=== PATIENT | female | born 1965 | race Caucasian/White ===

== ENCOUNTER → 2016-12-14 | Outpatient (CLI) | payer MEDICARE, OTHER ==
[~2016-12-14] MED LIST: ALLEGRA ALLERG180 MG PO; ALLEGRA180 MG PO; ALTOPREV40 MG PO; AMITRIP PO; AMITRIPTYLINE H25 MG PO; COMBIVENT U/D3 M1 NEB; EXCEDRIN MIGRA1 EACH PO; FERROUS GLUCON324 MG PO; GABAPENTIN300 MG PO; IBUPROFEN800 MG PO; LEVOTHYROXINE112 MCG PO; LEVOTHYROXINE75 MCG PO; LEVOXYL; LINZESS145 MCG PO; LORTAB 10/500 T1 TAB; LOVASTATIN20 M2 PO; MOBIC15 MG PO; MOTRIN IB200 M1 PO; MULTI-VITAMIN1 EAC1 PO; NAPROXEN; NEXIUM PO; NIACIN ER500 MG PO; NIASPAN1000 M1 PO; OXYGEN; PERPHEN PO; REGLAN; REGLAN10 MG; ROBAXIN 750750 M1 PO; SINGULAIR; SINGULAIR PO; SYMBICORT 160/4.6 G1; SYMBICORT80 INH; SYNTHROID75 MCG PO; TRICOR145 MG PO; VITAL-D RX TABL1 TAB; VITAMIN D2 PO; ZITHROMAX500 MG PO
--- NOTE | ~2016-12-14 | EKG ---
PATIENT: BRITTA SCHMITT UNIT #: [id number] Ventricular Rate: 77 BPM Atrial Rate: 77 BPM P-R Interval: 134 ms QRS Duration: 70 ms Q-T Interval: 384 ms QTC Calculation(Bezet): 434 ms P [place]: 12 degrees Calculated R [place]: 19 degrees Calculated T [place]: 17 degrees Diagnosis Line: Sinus rhythm with marked sinus arrhythmia with Diagnosis Line: junctional escape complexes Diagnosis Line: Otherwise normal ECG Diagnosis Line: When compared with ECG of 05-JUN-2014 09:08, Diagnosis Line: Sinus rhythm is now with junctional escape Diagnosis Line: complexes Diagnosis Line: Confirmed by CALEB ORTEGA MD ([id number]) on 12/14/2016 Diagnosis Line: 11:35:30 PM INTERPRETING MD: JORDAN CHAPARRO
[2016-12-14 12:48] LABS: BUN/CREATININE RATIO 16.66; CALCIUM SERUM 9.1 mg/dL (8.4-10.2); CREATININE SERUM 0.9 mg/dL (0.6-1.4); POTASSIUM 4.4 mmol/L (3.5-5.1)
== END | disposition home or self-care (01) ==
LOC: CAMB 10:00
PROVIDERS: Surgery
DX: Z01.818 Encounter for other preprocedural examination (principal)
CPT/HCPCS: 36415; 80048; 93005

== ENCOUNTER 2016-12-24 07:34 | Inpatient (IN) | payer MEDICARE, OTHER ==
--- NOTE | ~2016-12-24 | CR72 ---
[facility] A Service of [facility] RADIOLOGY TEXT RESULTS PATIENT: BRITTA SCHMITT LOCATION: [address] : [birth year] UNIT #: [id number] AGE: [address]: Savanah Sandy MD SEX: F ORDER DR: [id number] [facility] [address] [facility] [place], [place] [address] [id number] MR#: [id number] Acc #: [id number] NAME: BRITTA SCHMITT : 1965 SEX: F STUDY DATE/TIME: 12/24/2016 10:55 UNIT: [facility] ROOM: [facility] STUDY DESCRIPTION: CR Chest Single View Portable Attending Physician: Savanah Sandy M.D. Ordering Physician: Chapin Pool M.D. Primary Care Physician: Jovita Velasquez M.D. MEDICAL IMAGING REPORT This report is preliminary unless electronic signature is present EXAM AP portable chest, 12/24/2016 (1056 hours). HISTORY Respiratory failure. Endotracheal tube placement. TECHNIQUE AP portable chest x-ray. FINDINGS Newly placed endotracheal tube is in good position with tip in the lower thoracic trachea about 2 cm above the jolene. Newly placed NG tube is in good position with tip in the distal portion of a decompressed stomach. Right IJ central line remains in good position. Mild diffuse interstitial pulmonary edema or infiltrate throughout both lungs and small right pleural effusion, unchanged since earlier today. IMPRESSION 1. ETT and NG tube in good position. 2. No other change since earlier today. Dictated by... Kurt Kamara M.D. THIS IS AN ELECTRONICALLY VERIFIED REPORT Kurt Kamara M.D. at 12/24/2016 10:42 PM SEBASTIAN/luzmaria TD: 12/24/2016 17:39 JOB #: [id number] [facility] A Service of [facility] RADIOLOGY TEXT RESULTS PATIENT: BRITTA SCHMITT LOCATION: [place] [address]-17 : 61 UNIT #: [id number] AGE: [address]: Savanah Sandy MD SEX: F ORDER DR: MEDICAL IMAGING REPORT Page 1 of 1 COPY
--- NOTE | ~2016-12-24 | CT71 ---
[facility] A Service [facility] RADIOLOGY TEXT RESULTS PATIENT: BRITTA SCHMITT LOCATION: [facility] 5711-10 : 61 UNIT #: [id number] AGE: [address]: Savanna Foss MD SEX: F ORDER DR: [id number] [facility] [address] [facility]. [place], [place] [address] [id number] MR#: [id number] Acc #: [id number] NAME: BRITTA SCHMITT : 1965 SEX: F STUDY DATE/TIME: 01/02/2017 16:32 UNIT: [facility] ROOM: [facility] STUDY DESCRIPTION: CT Head Wo Contrast Attending Physician: Savanna Foss M.D. Ordering Physician: Edie Carroll M.D. Primary Care Physician: Jovita Velasquez M.D. MEDICAL IMAGING REPORT This report is preliminary unless electronic signature is present EXAM CT brain without contrast HISTORY Increased confusion since yesterday. FINDINGS This CT exam was performed with one or more of the following radiation dose reduction techniques: Automatic exposure control, adjustment of mA and/or kV according to patient size, and iterative reconstruction. CT brain without contrast demonstrates no intracranial hemorrhage, mass or edema. No midline shift or ventricular dilatation or extraaxial fluid collection. Opacification of mastoid air cells bilaterally and mucosal thickening in the left sphenoid sinus. Incidental non-pneumatized frontal sinuses. IMPRESSION 1. Negative CT brain. 2. Opacified mastoid air cells bilaterally and mucosal thickening in the sphenoid sinus. Dictated by... Luigi Caceres M.D. THIS IS AN ELECTRONICALLY VERIFIED REPORT Luigi Caceres M.D. at 01/02/2017 10:50 PM DFL/psc TD: 01/02/2017 20:17 JOB #: [id number] [facility] A Service [facility] RADIOLOGY TEXT RESULTS PATIENT: BRITTA SCHMITT LOCATION: [facility] : 61 UNIT #: [id number] AGE: [address]: Savanna Foss MD SEX: F ORDER DR: MEDICAL IMAGING REPORT Page 1 of 1 COPY
--- NOTE | ~2016-12-24 | CT55 ---
[facility] A Service of [facility] RADIOLOGY TEXT RESULTS PATIENT: BRITTA SCHMITT LOCATION: [facility] 573-01 : 61 UNIT #: [id number] AGE: [address]: Savanna Foss MD SEX: F ORDER DR: [id number] [facility] [address] [place], [place] [address] [id number] I MR#: [id number] Acc #: [id number] NAME: BRITTA SCHMITT : 1965 SEX: F STUDY DATE/TIME: 01/02/2017 16:36 UNIT: [facility] ROOM: [facility] STUDY DESCRIPTION: CT Chest W Con Attending Physician: Savanna Foss M.D. Ordering Physician: Roberto Rothman M.D. Primary Care Physician: Jovita Velasquez M.D. MEDICAL IMAGING REPORT This report is preliminary unless electronic signature is present EXAM CT chest with IV contrast HISTORY Respiratory failure since yesterday. FINDINGS This CT exam was performed with one or more of the following radiation dose reduction techniques: Automatic exposure control, adjustment of mA and/or kV according to patient size, and iterative reconstruction. CT chest with IV contrast demonstrates very small bilateral pleural effusions. Moderate atelectasis in the posterior right lower lobe and mild atelectasis in the posterior left lower lobe. Additional patchy subsegmental airspace infiltrates in the bilateral upper lobes and in both lower lobes. Enlarged aortopulmonic window lymph node measuring 1.2 cm in short-axis dimension could be reactive or inflammatory. Moderate sized hiatal hernia with fluid in the thoracic esophagus suggesting gastroesophageal reflux. There is a small pericardial effusion and small amount of perihepatic ascites. IMPRESSION 1. Moderate atelectasis in the posterior and inferior right lower lobe and mild atelectasis in the posterior left lower lobe. 2. Mild patchy multifocal airspace infiltrates in the bilateral upper lobes and in the lower lobes are nonspecific and could be due to pneumonia. 3. Small pleural effusions. 4. Adenopathy in the aortopulmonic window measuring 1.2 cm could be reactive or inflammatory. 5. Moderate sized hiatal hernia with fluid in the thoracic esophagus suggesting gastroesophageal reflux. 6. Small pericardial effusion and small amount of perihepatic ascites. [facility] A Service of [facility] RADIOLOGY TEXT RESULTS PATIENT: BRITTA SCHMITT LOCATION: [facility] 573-01 : 61 UNIT #: [id number] AGE: [address]: Savanna Foss MD SEX: F ORDER DR: Dictated by... Luigi Caceres M.D. THIS IS AN ELECTRONICALLY VERIFIED REPORT Luigi Caceres M.D. at 01/02/2017 10:50 PM DFL/psc TD: 01/02/2017 20:23 JOB #: [id number] MEDICAL IMAGING REPORT Page 1 of 1 COPY
--- NOTE | ~2016-12-24 | CO ---
Unit #: [id number] #: [id number] Patient: CELENA SCHMITT [id number] [address] [place], [place] [address] [id number] I MR#: [id number] NAME: CELENA SCHMITT ROOM: 573 Age: 51 Sex: F Admission Date: 12/24/2016 : 1965 Attending Physician: Savanna Foss M.D. Primary Care Physician: Jovita Velasquez M.D. Consultation Date: 01/01/2017 CONSULTATION REPORT REASON FOR CONSULTATION Depression and confusion. HISTORY OF PRESENT ILLNESS Ms. Celena Schmitt is a 51-year-old white female diagnosed with Down syndrome, seen in room 573, bed 1 on 01/01/2017. The patient was very agitated, and received Haldol 5 mg IV and after that, the patient was very sleepy and sedated, unable to give any reliable information. Before that, the patient was giving one-word answer, come on very confused, upset. The patient lost her mother in this hospital few days ago, was given this news recently. The patient started having increasing behavior after that. The patient was admitted on 12/24/2016 with shortness of air. The patient's family was at the bedside. Obtained information from nursing staff. Family chart reviewed. PAST PSYCHIATRIC HISTORY Remarkable for history of Down syndrome, mild MR. MEDICAL HISTORY AND MEDICATION HISTORY History of chronic lung disease, on oxygen 2 L at home; hypertension; hypothyroidism; history of Down syndrome. MEDICATIONS The patient is on Synthroid, amitriptyline, TriCor. Please refer to MAR for detail. FAMILY HISTORY AND SOCIAL HISTORY The patient has a good support from family. No history of any abuse. No history of any substance abuse. REVIEW OF SYSTEMS Complete review of systems is unremarkable except for agitation and confusion. MENTAL STATUS EXAMINATION Vital signs; blood pressure 98/46, respiration 22, pulse 104, temperature is afebrile. General appearance; the patient dressed casually in hospital attire, lying comfortably in bed after she received injection of Haldol; before that, agitation and confusion. Attention span and concentration, unable to assess. Speech, unable to assess. Orientation, unable to assess. Mood and affect, labile. Thought process and thought content, disorganized. Recent and remote memory, unable to assess. Fund of knowledge, impaired. Insight and judgment, impaired. Unit #: [id number] #: [id number] Patient: CELENA SCHMITT DIAGNOSES Psychiatric: Delirium, F05; rule out major depressive disorder, recurrent, severe, F33.2. Secondary diagnosis: Deferred. Medical diagnosis: Please refer to H and P. Stressors: Psychosocial stressor, recent of her mother. ASSESSMENT AND PLAN 1. Supportive psychotherapy and psychoeducation provided to the patient's family. The patient unable to comprehend at this time. 2. Recommending at this time to continue with current treatment and advised haloperidol 5 mg q.6 hours p.r.n. for agitation p.o. or IM route. The patient was advised Risperdal 1 mg b.i.d. for mood stabilization and psychosis. We will continue to follow. If needed, consider further adjustment of medication. Advised to hold above medication if the patient too sleepy. Please feel free to call if any questions, telephone [phone]. Dictated by... Brady Monsivais/velasquez TD: 01/03/2017 00:56 JOB #: [id number] CONSULTATION REPORT Page 1 of 1 X Rubio Flores MD X CONSULTATION REPORT
--- NOTE | ~2016-12-24 | CR71 ---
[facility] A Service of [facility] RADIOLOGY TEXT RESULTS PATIENT: BRITTA SCHMITT LOCATION: [address] : 63 UNIT #: [id number] AGE: [address]: Savanna Foss MD SEX: F ORDER DR: [id number] [facility] [address] [facility]. [place], [place] [address] [id number] I MR#: [id number] Acc #: [id number] NAME: BRITTA SCHMITT : 1965 SEX: F STUDY DATE/TIME: 12/27/2016 6:02 UNIT: [facility] ROOM: [facility] STUDY DESCRIPTION: CR Chest Single View Attending Physician: Savanna Foss M.D. Ordering Physician: Roberto Rothman M.D. Primary Care Physician: Jovita Velasquez M.D. MEDICAL IMAGING REPORT This report is preliminary unless electronic signature is present EXAM AP portable chest, 12/27/2016. HISTORY Respiratory failure. Follow up cardiopulmonary status. Patient on ventilator. TECHNIQUE AP portable chest x-ray. FINDINGS The exam shows no change since yesterday. Endotracheal tube tip 1.5 cm above the jolene. Right IJ central line and NG tube remain in good position. Ytbp-kt-yfeyhxko diffuse interstitial pulmonary edema or infiltrate throughout both lungs with small pleural effusions and bibasilar pulmonary atelectasis. IMPRESSION Stable portable chest radiograph, unchanged since yesterday. Dictated by... Kurt Kamara M.D. THIS IS AN ELECTRONICALLY VERIFIED REPORT Kurt Kamara M.D. at 12/27/2016 3:54 PM RGW/bob TD: 12/27/2016 09:46 JOB #: [id number] MEDICAL IMAGING REPORT [facility] A Service of [facility] RADIOLOGY TEXT RESULTS PATIENT: BRITTA SCHMITT LOCATION: [address] : [birth year] UNIT #: [id number] AGE: [address]: Savanna Foss MD SEX: F ORDER DR: Page 1 of 1 COPY
--- NOTE | ~2016-12-24 | CO ---
Unit #: [id number] #: [id number] Patient: CELENA SCHMITT [id number] [address] [place], [place] [address] [id number] I MR#: [id number] NAME: CELENA SCHMITT ROOM: 573 Age: 51 Sex: F Admission Date: 12/24/2016 : 1965 Attending Physician: Savanna Foss M.D. Primary Care Physician: Jovita Velasquez M.D. Consultation Date: 01/04/2017 CONSULTATION REPORT DISCUSSION Ms. Celena Schmitt is a 51-year-old female, seen in room 573, bed 1 on 01/04/2017. The patient was lying comfortably in a recliner, able to answer questions coherently, tolerating medication fairly well, alert and oriented. The patient did not show any aggression or agitation. The patient compliant with medication. Vital signs; temperature 99.2, pulse 95, respirations 20, blood pressure 107/67, oxygen saturation 92%. REVIEW OF SYSTEMS Complete review of systems is unremarkable. MENTAL STATUS EXAMINATION General appearance, the patient dressed casually. Attention span and concentration, fair. Speech, slow. Oriented in place and person. Mood and affect, sad and dysphoric. Thought process, coherent. Thought content, the patient denied any thoughts of harming self or others, but somewhat guarded. Recent and remote memory, fair. Language, fair. Fund of knowledge, fair to slightly impaired. Insight and judgment, fair to slightly impaired. DIAGNOSES 1. Delirium, resolved. 2. Major depressive disorder, recurrent, severe. ASSESSMENT/PLAN 1. Supportive psychotherapy and psychoeducation provided to the patient. 2. Educated about benefits and side effects of medication and course and prognosis of illness. 3. Advised to continue with current medication. The patient's haloperidol was changed to p.r.n. only. The patient will be benefitted with SSRI. Plan to consider low dose such as Celexa 10 mg daily. If needed, consider further adjustment of medication. We will continue to follow. Please feel free to call if any questions telephone #[phone]. Dictated by... Rubio Flores M.D. FABIO/velasquez TD: 01/05/2017 01:41 JOB #: [id number] Unit #: [id number] #: [id number] Patient: CELENA SCHMITT CONSULTATION REPORT Page 1 of 1 X Rubio Flores MD CONSULTATION REPORT
--- NOTE | ~2016-12-24 | CR2 ---
[facility] A Service of [facility] RADIOLOGY TEXT RESULTS PATIENT: BRITTA SCHMITT LOCATION: [address] : [birth year] UNIT #: [id number] AGE: [address]: Savanah Sandy MD SEX: F ORDER DR: [id number] [facility] [address] [place], [place] [address] [id number] I MR#: [id number] Acc #: [id number] NAME: BRITTA SCHMITT : 1965 SEX: F STUDY DATE/TIME: 12/24/2016 15:49 UNIT: [facility] ROOM: [facility] STUDY DESCRIPTION: CR Abdomen Acute Series Attending Physician: Savanah Sandy M.D. Ordering Physician: Nato Moreno Jr., M.D. Primary Care Physician: Jovita Velasquez M.D. MEDICAL IMAGING REPORT This report is preliminary unless electronic signature is present EXAM Acute abdomen series 12/24/2016 HISTORY Postop hernia repair surgery yesterday. Respiratory failure. Abdomen distension and tenderness. TECHNIQUE Flat and upright abdomen series with AP portable chest x-ray. FINDINGS Abdomen images show a normal bowel gas pattern with no evidence of bowel obstruction. NG tube tip in the distal portion of a decompressed stomach. Surgical clips in the gallbladder fossa. Chest x-ray is unchanged since earlier today. Endotracheal tube, right IJ central line and NG tube remain in good position. Patchy infiltrates in the lung bases, greater on the right and probable small right pleural effusion without significant change. IMPRESSION 1. Normal bowel gas pattern. 2. Support devices in good position. 3. Pulmonary infiltrates unchanged since earlier today. 4. Abdomen and pelvis CT is pending. Dictated by... Kurt Kamara M.D. THIS IS AN ELECTRONICALLY VERIFIED REPORT Kurt Kamara M.D. at 12/24/2016 10:43 PM NAKIAW/ej [facility] A Service of [facility] RADIOLOGY TEXT RESULTS PATIENT: BRITTA SCHMITT LOCATION: [facility]IC[facility]3-17 : 61 UNIT #: [id number] AGE: [address]: Savanah Sandy MD SEX: F ORDER DR: TD: 12/24/2016 22:39 JOB #: [id number] MEDICAL IMAGING REPORT Page 1 of 1 COPY
--- NOTE | ~2016-12-24 | CR72 ---
[facility] A Service of [facility] RADIOLOGY TEXT RESULTS PATIENT: BRITTA SCHMITT LOCATION: [facility]3-17 : 63 UNIT #: [id number] AGE: [address]: Savanna Foss MD SEX: F ORDER DR: [id number] [facility] [address] [place], [place] [address] [id number] I MR#: [id number] Acc #: [id number] NAME: BRITTA SCHMITT : 1965 SEX: F STUDY DATE/TIME: 12/24/2016 9:23 UNIT: [facility] ROOM: 84739 STUDY DESCRIPTION: CR Chest Single View Portable Attending Physician: Savanah Sandy M.D. Ordering Physician: Yrn Moffett Primary Care Physician: Jovita Velasquez M.D. MEDICAL IMAGING REPORT This report is preliminary unless electronic signature is present EXAM AP portable chest 12/24/2069 09:23 HISTORY 51-year-old female with PICC placement, shortness breath and acute mental status changes. Symptoms began 12/23/2016. Status post hernia repair 1 day ago. COMPARISON AP portable chest 12/24/2016 07:59. FINDINGS Right internal jugular central line has been placed. The tip projects to the cavoatrial junction. No pneumothorax is visible. Faint bilateral perihilar infiltrates are thought to be present with small layering right pleural effusion and stable mild cardiac enlargement, without significant change compared to earlier today. Dictated by... Leah Wallace M.D. THIS IS AN ELECTRONICALLY VERIFIED REPORT Leah Wallace M.D. at 12/27/2016 8:37 AM BLAKE/heather TD: 12/24/2016 11:20 JOB #: [id number] MEDICAL IMAGING REPORT Page 1 of 1 COPY
--- NOTE | ~2016-12-24 | CO ---
Unit #: [id number] #: [id number] Patient: CELENA SCHMITT [id number] [facility] [address] [place], [place] [address] [id number] I MR#: [id number] NAME: CELENA SCHMITT ROOM: 573 Age: 51 Sex: F Admission Date: 12/24/2016 : 1965 Attending Physician: Savanna Foss M.D. Primary Care Physician: Jovita Velasquez M.D. Consultation Date: 01/05/2017 CONSULTATION REPORT REASON FOR CONSULTATION Followup. DISCUSSION Ms. Celena Schmitt is a 51-year-old white female diagnosed with Down syndrome, seen in room 573, bed one, on 01/05/17 at [facility]. The patient was compliant, cooperative, sitting comfortably in chair. The patient's family was at the bedside, friend and her caregiver. The patient was able to answer questions appropriately, made good eye contact. The patient was coloring sheet. The patient reports feeling better. VITAL SIGNS: 97.9, 92, 20, 106/65, oxygen saturation 98%. Thoughts are more goal directed and mood is better. No side effects of medication. Complete review of systems is unremarkable. MENTAL STATUS EXAMINATION GENERAL APPEARANCE: Patient dressed casually, lying comfortably in a recliner. ATTENTION SPAN AND CONCENTRATION: Fair. SPEECH: Regular rate. ORIENTATION: Oriented in place and person. MOOD AND AFFECT: Sad, dysphoric. THOUGHT PROCESSS: Coherent. THOUGHT CONTENT: The patient denied any thoughts of harming self or others or any hallucinations. RECENT AND REMOTE MEMORY: Fair. LANGUAGE: Fair. FUND OF KNOWLEDGE: Fair. INSIGHT AND JUDGMENT: Fair to slightly impaired. DIAGNOSIS Psychiatric: Major depressive disorder, recurrent, severe, F33.2. ASSESSMENT/PLAN 1. Supportive psychotherapy and psychoeducation provided to patient. 2. Education about benefits and side effects of medication and course and prognosis of illness. 3. Continue with Lexapro 5 mg at bedtime for mood symptoms and agree with the plan to change haloperidol to p.r.n. only 2 mg three times a day for severe agitation. We will continue to follow if needed to Unit #: [id number] #: [id number] Patient: CELENA SCHMITT consider further adjustment in medication. Please feel free to call if any questions, telephone number [phone]. Dictated by... Brady Monsivais/arlen TD: 01/06/2017 07:10 JOB #: [id number] CONSULTATION REPORT Page 1 of 1 X Rubio Flores MD X CONSULTATION REPORT
--- NOTE | ~2016-12-24 | CR72 ---
[facility] A Service of [facility] & [facility] RADIOLOGY TEXT RESULTS PATIENT: BRITTA SCHMITT LOCATION: [address]17 : [birth year] UNIT #: [id number] AGE: [address]: Savanna Foss MD SEX: F ORDER DR: [id number] [facility] [address] [place], [place] [address] [id number] I MR#: [id number] Acc #: [id number] NAME: BRITTA SCHMITT : 1965 SEX: F STUDY DATE/TIME: 12/28/2016 9:46 UNIT: [facility] ROOM: [facility] STUDY DESCRIPTION: CR Chest Single View Portable Attending Physician: Savanna Foss M.D. Ordering Physician: Jose Alfredo Doe M.D. Primary Care Physician: Jovita Velasquez M.D. MEDICAL IMAGING REPORT This report is preliminary unless electronic signature is present EXAM Portable chest HISTORY Shortness of breath with respiratory failure. Recent hernia repair 12/22/2016 TECHNIQUE Single AP view chest was obtained and compared with 12/27/2016 FINDINGS Tubes when devices are in satisfactory position. The heart and mediastinum are stable. Interstitial edema and vascular congestion seen on the previous examination is again noted but has improved. No new focal infiltrates are seen. IMPRESSION Improvement in pulmonary vascular congestion since the previous exam. No new infiltrates are seen. Dictated by... Jose Alfredo Argueta M.D. THIS IS AN ELECTRONICALLY VERIFIED REPORT Jose Alfredo Argueta M.D. at 12/28/2016 3:48 PM ROBINSON/heather TD: 12/28/2016 11:23 JOB #: [id number] MEDICAL IMAGING REPORT Page 1 of 1 COPY
--- NOTE | ~2016-12-24 | CR71 ---
[facility] A Service of [facility] RADIOLOGY TEXT RESULTS PATIENT: BRITTA SCHMITT LOCATION: [facility] [id number] : [birth year] UNIT #: [id number] AGE: [address]: Savanna Foss MD SEX: F ORDER DR: [id number] [facility] [address] [place], [place] [address] [id number] I MR#: [id number] Acc #: [id number] NAME: BRITTA SCHMITT : 1965 SEX: F STUDY DATE/TIME: 01/04/2017 5:07 UNIT: [facility] ROOM: [facility] STUDY DESCRIPTION: CR Chest Single View Attending Physician: Savanna Foss M.D. Ordering Physician: Oswald Gómez M.D. Primary Care Physician: Jovita Velasquez M.D. MEDICAL IMAGING REPORT This report is preliminary unless electronic signature is present EXAM AP portable chest 01/04/2017 HISTORY Persistent respiratory difficulties following recent abdominal surgery. Follow up cardiopulmonary status. TECHNIQUE AP portable chest x-ray. FINDINGS Persistent dense infiltrates in the posterior lung bases, greater on the right. Stable cardiomegaly. Diffusely increased interstitial markings throughout both lungs have increased in prominence since 01/02/2017. Mild vascular congestion or volume overload should be considered. Low lung volumes. Right arm PICC remains in good position. IMPRESSION 1. Possible new or worsening mild vascular congestion since 01/02/2017. 2. Persistent bibasilar infiltrates, greater on the right. Stable cardiomegaly. Dictated by... Kurt Kamara M.D. THIS IS AN ELECTRONICALLY VERIFIED REPORT Kurt Kamara M.D. at 01/04/2017 9:53 PM NAKIAW/kelechi TD: 01/04/2017 07:17 [facility] A Service of [facility] RADIOLOGY TEXT RESULTS PATIENT: BRITTA SCHMITT LOCATION: [facility] 573- : [birth year] UNIT #: [id number] AGE: [address]: Savanna Foss MD SEX: F ORDER DR: JOB #: [id number] MEDICAL IMAGING REPORT Page 1 of 1 COPY
--- NOTE | ~2016-12-24 | CR72 ---
[facility] A Service of [facility] & [facility] RADIOLOGY TEXT RESULTS PATIENT: BRITTA SCHMITT LOCATION: [place] [id number] : 63 UNIT #: [id number] AGE: [address]: Savanah Sandy MD SEX: F ORDER DR: [id number] [facility] [address] [place], [place] [address] [id number] I MR#: [id number] Acc #: [id number] NAME: BRITTA SCHMITT : 1965 SEX: F STUDY DATE/TIME: 12/25/2016 5:26 UNIT: [facility] ROOM: [facility] STUDY DESCRIPTION: CR Chest Single View Portable Attending Physician: Savanah Sandy M.D. Ordering Physician: Oswald Gómez M.D. Primary Care Physician: Jovita Velasquez M.D. MEDICAL IMAGING REPORT This report is preliminary unless electronic signature is present EXAM Portable chest 12/25/2016 HISTORY A 51-year-old female with shortness of air for 2 days. COMPARISON STUDIES Comparison chest 12/24/2016 FINDINGS Frontal chest demonstrates tubes and lines in stable position. No pneumothorax. No interval improvement in bilateral interstitial opacities and small right pleural effusion. Heart size and mediastinum are stable. IMPRESSION 1. Tubes and lines stable. No pneumothorax. 2. No interval improvement in bilateral interstitial opacities and small right pleural effusion. Dictated by... Gil Eric M.D. THIS IS AN ELECTRONICALLY VERIFIED REPORT Gil Eric M.D. at 12/26/2016 8:12 AM AWA/benedicto TD: 12/26/2016 00:09 JOB #: [id number] MEDICAL IMAGING REPORT Page 1 of 1 COPY
--- NOTE | ~2016-12-24 | FU ---
[facility] Nutrition Therapy DATE: 01/04/17 Patient: BRITTA SCHMITT Physician: ZACK Address: [address] [place] [address] Room/Bed: [address] [place] [address], Zip: [place] [address] Admit Date: 12/24/16 Date of : [birth year] Height: 4 11 Weight: 151 68.9 NUTRITION MONITORING/FOLLOW-UP: Reason: Nutrition follow-up Anthropometrics: Ht: 59" Adm wt: 69 kg BMI: 30.0 Current wt: 68.6 kg Labs: BUN 8.0, Ca++ 8.1, POC 115 Meds: Protonix, Mg, K, Synthroid I&O's: 1850/1451, last BM 01/03 (constipation) Skin: Bruises (abd/BUE), 8 lap sites/dheeraj (abd), no edema noted Assessment: Chart reviewed, events noted. Per chart, pt was extubated and had PSYCHOTHERAPIST COUNSELOR evaluation on 12/31. Pt's diet is regular + dental + chop + thin liquids per PSYCHOTHERAPIST COUNSELOR. Per surgery note on 01/01, pt eating well. RD statistics intern talked with pt and family at bedside today. Pt reports good appetite and eating ~50% of meals. Pt reported feeling nauseous and vomiting this am. RD statistics intern encouraged Ensure shakes, pt agreed. Nutrition problem remains, see new evidence. See recommendations below. Dx: Inadequate oral intake RT clincial condition AEB consuming ~50% of meals. -ACTIVE Intervention: 1. Ensure 2. Regular + dental + chop diet Monitoring, Evaluation and Goals: 1. Labs; WNL - MET New goals: 1. PO intake; consume >75% of meals and supplements Recommendations: 1. Please order chocolate Ensure shakes once daily. 2. Appreciate family and staff to encourage adequate calorie/protein intake. Status: Pt is at a mild nutritional risk. [facility] Nutrition Therapy DATE: 01/04/17 Patient: BRITTA SCHMITT Physician: ZACK Address: [address] [place] [address] Room/Bed: [address] [place] [address], Zip: [place] [address] Admit Date: 12/24/16 Date of : [birth year] Height: 4 11 Weight: [address] will f/u per protocol. Respectfully, Daily Henry, Residential Property Manager Aura Arroyo RD, LD Food and Nutritional Services [facility] cc: client file
--- NOTE | ~2016-12-24 | CR72 ---
[facility] A Service of [facility] & [facility] RADIOLOGY TEXT RESULTS PATIENT: BRITTA SCHMITT LOCATION: [place] [id number] : 63 UNIT #: [id number] AGE: [address]: Savanna Foss MD SEX: F ORDER DR: [id number] [facility] [address] [place], [place] [address] [id number] I MR#: [id number] Acc #: [id number] NAME: BRITTA SCHMITT : 1965 SEX: F STUDY DATE/TIME: 12/30/2016 4:52 UNIT: [facility] ROOM: [facility] STUDY DESCRIPTION: CR Chest Single View Portable Attending Physician: Savanna Foss M.D. Ordering Physician: Ishmael Panchal M.D. Primary Care Physician: Jovita Velasquez M.D. MEDICAL IMAGING REPORT This report is preliminary unless electronic signature is present EXAM Portable chest INDICATION Shortness of air, respiratory failure, follow up endotracheal tube. FINDINGS This portable view of the chest is compared with yesterday's study. The endotracheal tube, nasogastric tube and PIC catheter are in good position. The heart size is normal and there are no focal infiltrates. Dictated by... Nain Guerrero M.D. THIS IS AN ELECTRONICALLY VERIFIED REPORT Nain Guerrero M.D. at 12/30/2016 2:15 PM LUCITA/kelechi TD: 12/30/2016 06:21 JOB #: [id number] MEDICAL IMAGING REPORT Page 1 of 1 COPY
--- NOTE | ~2016-12-24 | CR72 ---
[facility] A Service of [facility] RADIOLOGY TEXT RESULTS PATIENT: BRITTA SCHMITT LOCATION: [place] [id number] : 63 UNIT #: [id number] AGE: [address]: Savanna Foss MD SEX: F ORDER DR: [id number] [facility] [address] [place], [place] [address] [id number] I MR#: [id number] Acc #: [id number] NAME: BRITTA SCHMITT : 1965 SEX: F STUDY DATE/TIME: 12/31/2016 4:12 UNIT: [facility] ROOM: [facility] STUDY DESCRIPTION: CR Chest Single View Portable Attending Physician: Savanna Foss M.D. Ordering Physician: Oswald Gómez M.D. Primary Care Physician: Jovita Velasquez M.D. MEDICAL IMAGING REPORT This report is preliminary unless electronic signature is present EXAM Single view chest INDICATION Respiratory failure. Interval extubation. FINDINGS Single portable AP view of the chest compared to 12/30/2016 and 12/29/2016. The endotracheal tube and enteric tube have been removed. Right IJ central line remains in place. Heart and mediastinal contours are stable. There is slight increase in bibasilar atelectasis. There may be a small right effusion. No pneumothorax. IMPRESSION 1. Slight increase in bibasilar airspace opacities indicative of atelectasis. 2. Interval extubation and removal of the enteric tube. Dictated by... Niko Carl M.D. THIS IS AN ELECTRONICALLY VERIFIED REPORT Niko Carl M.D. at 12/31/2016 8:08 AM RANDY/kelechi TD: 12/31/2016 07:21 JOB #: [id number] MEDICAL IMAGING REPORT Page 1 of 1 COPY
--- NOTE | ~2016-12-24 | CR72 ---
[facility] A Service of [facility] RADIOLOGY TEXT RESULTS PATIENT: BRITTA SCHMITT LOCATION: [address]17 : [birth year] UNIT #: [id number] AGE: [address]: Savanna Foss MD SEX: F ORDER DR: [id number] [facility] [address] [place], [place] [address] [id number] I MR#: [id number] Acc #: [id number] NAME: BRITTA SCHMITT : 1965 SEX: F STUDY DATE/TIME: 12/24/2016 7:59 UNIT: [facility] ROOM: [id number] STUDY DESCRIPTION: CR Chest Single View Portable Attending Physician: Savanah Sandy M.D. Ordering Physician: Chapin Pool M.D. Primary Care Physician: Jovita Velasquez M.D. MEDICAL IMAGING REPORT This report is preliminary unless electronic signature is present EXAM AP portable chest. DATE 12/24/2016 at 0759 HISTORY 51-year-old female with dyspnea today. Shortness of breath and acute mental status changes, symptoms began 12/23/2016. Hernia repair 1 day ago. COMPARISON PA and lateral chest, 07/06/2016. FINDINGS Low volume inspiration. Central [id number] lung zone airspace disease changes are present, how much of this may represent a pneumonia, aspiration, or even potentially edema is unclear. Heart size is borderline enlarged and appears slightly increased compared to the 2016 study, potentially accentuated by the portable technique. There is a probable small layering right pleural effusion. No pneumothorax is visible. Dictated by... Leah Wallace M.D. THIS IS AN ELECTRONICALLY VERIFIED REPORT Leah Wallace M.D. at 12/27/2016 8:37 AM LL/bob TD: 12/24/2016 10:24 JOB #: [id number] [facility] A Service [facility] RADIOLOGY TEXT RESULTS PATIENT: BRITTA SCHMITT LOCATION: [address] : 63 UNIT #: [id number] AGE: [address]: Savanna Foss MD SEX: F ORDER DR: MEDICAL IMAGING REPORT Page 1 of 1 COPY
--- NOTE | ~2016-12-24 | CT2 ---
[facility] A Service of [facility] & [facility] RADIOLOGY TEXT RESULTS PATIENT: BRITTA SCHMITT LOCATION: [facility] [id number] : 63 UNIT #: [id number] AGE: [address]: Savanna Foss MD SEX: F ORDER DR: [id number] [facility] [address] [place], [place] [address] [id number] I MR#: [id number] Acc #: [id number] NAME: BRITTA SCHMITT : 1965 SEX: F STUDY DATE/TIME: 01/02/2017 16:36 UNIT: [facility] ROOM: [facility] STUDY DESCRIPTION: CT Abd and Pelv W Cont Attending Physician: Savanna Foss M.D. Ordering Physician: Edie Carroll M.D. Primary Care Physician: Jovita Velasquez M.D. MEDICAL IMAGING REPORT This report is preliminary unless electronic signature is present EXAM CT abdomen and pelvis with IV contrast HISTORY Abdomen distension for 1 week. Recent ventral hernia repair. FINDINGS CT abdomen and pelvis was performed with IV contrast. This CT exam was performed with one or more of the following radiation dose reduction techniques: Automatic exposure control, adjustment of mA and/or kV according to patient size, and iterative reconstruction. CT ABDOMEN: Small bilateral pleural effusions, moderate atelectasis in the right lower lobe and mild atelectasis in the left lower lobe and additional patchy airspace infiltrates in both lung bases. Moderate sized hiatal hernia. Small pericardial effusion. Small amount of perihepatic ascites. Diffuse fatty infiltration of the liver. Cholecystectomy. The pancreas, kidneys, and adrenal glands are normal. Normal caliber abdominal aorta. Multiple small splenic cysts. No bowel dilatation. There is a loculated subcutaneous fluid collection at the level of the umbilicus measuring 2.8 cm x 5.5 cm x 4.8 cm in AP, transverse and craniocaudal dimensions, and this could be a postoperative seroma versus a small abscess, but there are no associated air bubbles. Mild adjacent subcutaneous fat stranding could be due to edema or cellulitis. CT PELVIS: Small amount of pelvic ascites. Urinary bladder is decompressed. Hysterectomy. No abnormal adnexal mass. No bowel dilatation. IMPRESSION 1. Loculated subcutaneous fluid collection at the level of the umbilicus measures 2.8 cm x 5.5 cm x 4.8 cm. This could be a postoperative seroma. An abscess is not excluded but there are no associated air STS. [facility] A Service of [facility] RADIOLOGY TEXT RESULTS PATIENT: BRITTA SCHMITT LOCATION: [facility] [id number] : 63 UNIT #: [id number] AGE: [address]: Savanna Foss MD SEX: F ORDER DR: lee. 2. Small amount of ascites in the abdomen and pelvis. 3. No bowel obstruction or urinary obstruction. 4. Moderate sized hiatal hernia, small pericardial effusion and small pleural effusions. Bibasilar infiltrates and atelectasis correspond to similar findings on CT chest reported separately. 5. Cholecystectomy and hysterectomy. Dictated by... Luigi Caceres M.D. THIS IS AN ELECTRONICALLY VERIFIED REPORT Luigi Caceres M.D. at 01/02/2017 10:51 PM DFL/ted TD: 01/02/2017 20:32 JOB #: [id number] MEDICAL IMAGING REPORT Page 1 of 1 COPY
--- NOTE | ~2016-12-24 | EKG ---
PATIENT: BRITTA SCHMITT UNIT #: [id number] Ventricular Rate: 139 BPM Atrial Rate: 139 BPM P-R Interval: 130 ms QRS Duration: 72 ms Q-T Interval: 310 ms QTC Calculation(Bezet): 471 ms P [place]: 29 degrees Calculated R [place]: 64 degrees Calculated T [place]: 12 degrees Diagnosis Line: Sinus tachycardia Diagnosis Line: Nonspecific ST abnormality Diagnosis Line: Abnormal ECG Diagnosis Line: When compared with ECG of 14-DEC-2016 10:36, Diagnosis Line: Sinus rhythm is no longer with junctional escape Diagnosis Line: complexes Diagnosis Line: Vent. rate has increased BY 62 BPM Diagnosis Line: Confirmed by YARELY CAMARENA MD ([id number]) on Diagnosis Line: 12/25/2016 4:47:45 PM INTERPRETING MD: VASQUEZ
--- NOTE | ~2016-12-24 | CR72 ---
[facility] A Service of [facility] & [facility] RADIOLOGY TEXT RESULTS PATIENT: BRITTA SCHMITT LOCATION: [place] [id number] : 63 UNIT #: [id number] AGE: [address]: Savanah Sandy MD SEX: F ORDER DR: [id number] [facility] [address] [place], [place] [address] [id number] I MR#: [id number] Acc #: [id number] NAME: BIRTTA SCHMITT : 1965 SEX: F STUDY DATE/TIME: 12/26/2016 3:56 UNIT: [facility] ROOM: [facility] STUDY DESCRIPTION: CR Chest Single View Portable Attending Physician: Savanah Sandy M.D. Ordering Physician: Savanah Sandy M.D. Primary Care Physician: Jovita Velasquez M.D. MEDICAL IMAGING REPORT This report is preliminary unless electronic signature is present EXAM Portable chest FINDINGS Endotracheal tube adjustment. FINDINGS This portable view of the chest shows endotracheal tube tip is 1 cm above the jolene. It has been pulled back slightly from previous study. There has been no other change. Dictated by... Nain Guerrero M.D. THIS IS AN ELECTRONICALLY VERIFIED REPORT Nain Guerrero M.D. at 12/26/2016 9:55 PM LUCITA/benedicto TD: 12/26/2016 19:29 JOB #: [id number] MEDICAL IMAGING REPORT Page 1 of 1 COPY
--- NOTE | ~2016-12-24 | CR7 ---
[facility] A Service of [facility] RADIOLOGY TEXT RESULTS PATIENT: BRITTA SCHMITT LOCATION: [address] : [birth year] UNIT #: [id number] AGE: [address]: Savanna Foss MD SEX: F ORDER DR: [id number] [place] [id number] [facility] [place], [place] [address] [id number] I MR#: [id number] Acc #: [id number] NAME: BRITTA SCHMITT : 1965 SEX: F STUDY DATE/TIME: 12/27/2016 7:31 UNIT: [facility] ROOM: [facility] STUDY DESCRIPTION: CR Abdomen Single AP View Attending Physician: Savanna Foss M.D. Ordering Physician: Xiang Valverde M.D. Primary Care Physician: Jovita Velasquez M.D. MEDICAL IMAGING REPORT This report is preliminary unless electronic signature is present EXAM Abdomen series, 12/27/2016. HISTORY 51-year-old female inpatient with respiratory failure. Patient on ventilator. Exam for new onset abdominal distension noted today. TECHNIQUE Flat and upright abdomen series. FINDINGS NG tube remains well positioned within a decompressed stomach. There was no significant bowel dilatation to suggest bowel obstruction or significant adynamic ileus. Moderately large volume stool in the right hemicolon. Surgical dheeraj superimposed over the left upper and left lower quadrants. Gallbladder surgical clips. No significant change since 12/24/2016. IMPRESSION 1. Negative abdomen series. Bowel gas pattern within normal limits. 2. NG tube in good position. Dictated by... Kurt Kamara M.D. THIS IS AN ELECTRONICALLY VERIFIED REPORT Kurt Kamara M.D. at 12/27/2016 3:56 PM SEBASTIAN/heather TD: 12/27/2016 10:04 JOB #: [id number] MEDICAL IMAGING REPORT [facility] A Service [facility] RADIOLOGY TEXT RESULTS PATIENT: BRITTA SCHMITT LOCATION: [address] : [birth year] UNIT #: [id number] AGE: [address]: Savanna Foss MD SEX: F ORDER DR: Page 1 of 1 COPY
--- NOTE | ~2016-12-24 | FU ---
[facility] Nutrition Therapy DATE: 12/30/16 Patient: BRITTA SCHMITT Physician: ZACK Address: [address] [place] [address] Room/Bed: [address], Zip: [place] [address] Admit Date: 12/24/16 Date of : 61 Height: 4 11 Weight: 153 69.5 NUTRITION MONITORING/FOLLOW-UP: Reason: Enteral nutrition follow-up Admitting Dx: 51 y/o female admitted with aspiration PNA and sepsis Anthropometrics: Ht: 59", admission wt: 69 kg, current wt: 69.5 kg, BMI: 30 (overweight) Labs: K+ 3.1, Phos 2.0, glucose 198, AST 44, ALT 43, Prealbumin 11.6, Mg WNL Meds: IV Synthroid, PPI, Nacl, Precedex, Solu-cortef, Kcl, MgSO4 I&O's: 2321/3855, last BM 12/29 Skin: 8 lap sites abdomen, other issues noted (not nutritionally significant) Edema: Trace pedal/hands Estimated Nutrition Needs: 2777-0639 kcals per day (20-25 kcals/kg) 83-103 g protein per day (1.2-1.5 g/kg) Fluids consistent with kcal needs or per MD Assessment: Chart reviewed, events noted. Patient remains intubated, trying to wean at this time, she is awake and alert on the vent. POD #10 ventral hernia repair, on K/Mg protocol. Although RD was consulted on 12/28 to provide EN and TPN recs, TPN was never initiated and was not indicated for this patient. Enteral feeds with Jevity 1.5 are currently running at goal rate of 45 ml/hr per OGT, providing 67% goal volume past 24 hours per pump history (previous nutrition goal not met). She is also receiving 30 ml Prostat per tube daily. Weight is stable. Previous nutrition dx resolved, see new dx and RD recs below. Dx: Inadequate protein energy intake r/t clinical condition AEB intubated, sedated, NPO - RESOLVED New nutrition dx: Inadequate oral intake r/t intubation AEB need for EN. Intervention: SEED CORN PRODUCTION MANAGER if extubated, K/Phos Monitoring, Evaluation and Goals: SOME MET 1. EN to provide > 80% goal volume x 24 hours vs tolerance of diet advancement if extubated. [facility] Nutrition Therapy DATE: 12/30/16 Patient: BRITTA SCHMITT Physician: ZACK Address: [address] [place] [address] Room/Bed: [address], Zip: [place] [address] Admit Date: 12/24/16 Date of : 61 Height: 4 11 Weight: 153 69.5 2. Improvement in lab values (lytes, glucose, AST, ALT, prealbumin). Monitor: Per protocol, criteria to determine if above goals met Recommendations: 1. If extubated suggest SEED CORN PRODUCTION MANAGER eval to determine safety of PO intake, as the patient has been intubated for > [address] recommending regular diet. 2. If patient remains intubated continue enteral nutrition with Jevity 1.5 @ 45 ml/hr + 30 ml Prostat daily per tube to provide 1720 kcals, 84 g protein, 821 ml water. Free water flushes per MD. 3. Replace lytes prn (K/Phos low). Status: Moderate nutrition risk Respectfully, Krista Kinsey, RD, LD Food and Nutritional Services [facility] cc: client file
--- NOTE | ~2016-12-24 | CR72 ---
[facility] A Service of [facility] RADIOLOGY TEXT RESULTS PATIENT: BRITTA SCHMITT LOCATION: [place] [id number] : 63 UNIT #: [id number] AGE: [address]: Savanna Foss MD SEX: F ORDER DR: [id number] [facility] [address] [place], [place] [address] [id number] I MR#: [id number] Acc #: [id number] NAME: BRITTA SCHMITT : 1965 SEX: F STUDY DATE/TIME: 12/29/2016 10:47 UNIT: [facility] ROOM: [facility] STUDY DESCRIPTION: CR Chest Single View Portable Attending Physician: Savanna Foss M.D. Ordering Physician: Ayana Chance M.D. Primary Care Physician: Jovita Velasquez M.D. MEDICAL IMAGING REPORT This report is preliminary unless electronic signature is present EXAM Portable chest INDICATION Follow up support lines and tubes. COMPARISON 12/28/2016. FINDINGS The support lines and tubes are stable. Slightly improved inspiratory volume. No new infiltrates. Heart size stable. IMPRESSION No significant change in the appearance of the chest. Dictated by... Charlie Florez M.D. THIS IS AN ELECTRONICALLY VERIFIED REPORT Charlie Florez M.D. at 12/30/2016 7:53 AM SARIKA/kelechi TD: 12/29/2016 14:09 JOB #: [id number] MEDICAL IMAGING REPORT Page 1 of 1 COPY
--- NOTE | ~2016-12-24 | CO ---
Unit #: [id number] #: [id number] Patient: CELENA SCHMITT [id number] [facility] [address] [facility]. [place], [place] [address] [id number] MR#: [id number] NAME: CELENA SCHMITT ROOM: 573 Age: 51 Sex: F Admission Date: 12/24/2016 : 1965 Attending Physician: Savanna Foss M.D. Primary Care Physician: Jovita Velasquez M.D. Consultation Date: 01/07/2017 CONSULTATION REPORT REASON FOR CONSULTATION Followup. DISCUSSION Ms. Celena Schmitt is a 51-year-old white female diagnosed with Down syndrome seen in room 573, bed 1 at [facility]. The patient was sitting comfortably in recliner, made good eye contact, alert and oriented, affect bright. Reports mood is better, decrease in anxiety. Denied any thoughts of harming self or others or any psychotic symptom. The patient reported that she will be going to a rehab. The patient's vital signs; temperature 98.1, pulse 81, respirations 18, blood pressure 94/42, and oxygen saturation 94. REVIEW OF SYSTEMS Complete review of systems is unremarkable. MENTAL STATUS EXAMINATION General appearance, the patient dressed casually in hospital attire. Attention span and concentration, fair. Speech, regular rate. Oriented in time, place, and person. Mood and affect were brighter, made good eye contact. Spontaneous speech. Thought process, coherent. Thought content, the patient denied any thoughts of harming self or others or any psychotic symptom. Recent and remote memory, fair. Language, fair. Fund of knowledge, fair. Insight and judgment, fair to slightly impaired. DIAGNOSIS Psychiatric: Major depressive disorder, recurrent, F33.2. ASSESSMENT AND PLAN 1. Supportive psychotherapy and psychoeducation provided to the patient. 2. Educated about benefits and side effects of medication and course and prognosis of illness. Advised to continue with current medication Lexapro 5 mg daily. The patient will be going to a rehab. Please feel free to call if any questions, telephone #[phone]. Dictated by... Rubio Flores M.D. FABIO/velasquez TD: 01/07/2017 23:21 JOB #: [id number] Unit #: [id number] #: [id number] Patient: CELENA SCHMITT CONSULTATION REPORT Page 1 of 1 X Rubio Flores MD CONSULTATION REPORT
--- NOTE | ~2016-12-24 | DS ---
Unit #: [id number] #: [id number] Patient: BRITTA SCHMITT [id number] [address] [address] [id number] I MR#: [id number] NAME: BRITTA SCHMITT ROOM: 573 Age: 51 Sex: F Admission Date: 12/24/2016 : 1965 Discharge Date: Attending Physician: Savanna Foss M.D. Primary Care Physician: Jovita Velasquez M.D. DISCHARGE SUMMARY DISCHARGE DIAGNOSES 1. Acute hypercapnic/hypoxic respiratory failure. 2. Bilateral pneumonia. 3. Atelectasis. 4. pneumonia. 5. Abdominal wall seroma. 6. Recent ventral hernia repair. 7. Anemia, iron deficiency. 8. Down syndrome. 9. Severe agitation during the hospitalization course secondary to grieving from her mom passing away. 10. Moderate protein malnutrition. 11. Hypothyroidism. 12. History of syncope. 13. Chronic hypoxic respiratory failure needing two liters at nighttime. 14. Hypothyroidism. 15. Hypokalemia. 16. Hyponatremia. CONSULTANTS Dr. Rothman and Dr. Flores. PROCEDURES None. LABORATORY DATA Blood cultures are negative. Sodium 134, potassium 3.5, creatinine 0.6, WBC 8.8, hemoglobin 9.7, platelets 276. Sputum cultures normal respiratory darian. Catheter tip cultures negative. ALLERGIES For adhesive. DISCHARGE MEDICATIONS 1. DuoNeb 3 mL nebulizer q.4 p.r.n. shortness of breath. 2. Albuterol 3 mL nebulizer q.4 p.r.n. shortness of breath. 3. Lexapro 5 mg at bedtime. 4. Antonieta 180 p.o. b.i.d. 5. Ferrous gluconate 324 p.o. daily. 6. Singulair 10 daily. 7. Lortab 5 mg p.o. b.i.d. p.r.n. 8. Nexium 40 p.o. b.i.d. 9. Potassium 40 mEq p.o. daily. 10. Synthroid 88 mcg p.o. daily. Unit #: [id number] #: [id number] Patient: BRITTA SCHMITT 11. Vitamin D2 1.25 units p.o. every Tuesday. HOSPITAL COURSE This is a 51-year-old with a history of Down syndrome admitted because of shortness of breath. Acute hypercapnic hypoxic respiratory failure: Patient needing ventilation, currently extubated. She is on 5 L Oxymizer tapered off to keep saturation greater than 90%. Bilateral pneumonia, likely aspiration. Patient is on vancomycin, Zosyn, and tobramycin. Cultures negative. Sputum culture is negative. Patient finished her antibiotic course. Sepsis secondary to pneumonia, resolved. Chronic hypoxic respiratory failure. Continue home oxygen. Hypothyroidism: Continue Synthroid. Moderate protein malnutrition: Patient received dietitian and tube feeds. Continue with feeding as per dietitian. Resent ventral hernia repair: Patient is seen by surgeon. She is tolerating diet okay. No acute issues. The patient has abdominal large seroma. Anemia, likely iron deficiency: No active bleeding. History of Down syndrome. Patient was agitated and depressed during the hospitalization course because her mom . The patient is seen by Dr. Flores. He put her on Haldol and Lexapro. Currently she is doing fine. Continue with Lexapro and taper it off. She says she doesn't need it in future. Patient will be discharged to rehab. Followup with Dr. Gómez in three weeks. Titrated down. O2 to give sats greater than 90%. Discussed with family. Discharge time taken is 35 minutes. Dictated by... Brady Roman/rebeca TD: 01/07/2017 12:35 JOB #: [id number] Unit #: [id number] #: [id number] Patient: BRITTA SCHMITT DISCHARGE SUMMARY Page 1 of 1 X Savanna Foss MD X DISCHARGE SUMMARY
--- NOTE | ~2016-12-24 | A ---
[facility] Nutrition Therapy DATE: 12/25/16 Patient: BRITTA SCHMITT Physician: ZACK Address: [address] [place] [address] Room/Bed: [address], Zip: [place] [address] Admit Date: 12/24/16 Date of : [birth year] Height: 4 11 Weight: 152 69 NUTRITIONAL ASSESSMENT: REASON: Seen due to NPO status in ICU, intubated Admitting Dx: SOA PMH: Down's syndrome, chronic respiratory failure, chronic lung disease on 2L home O2, HLD, hypothyroidism, ?DM Anthropometrics: Ht: 59", Wt: 69 kg, BMI: 30 (Stage I obese) Labs: K+ 3.4, Glucose 156, no Accucheks being done Meds: IV Levaquin, Solu-cortef, PPI, Precedex, EPI, MgSO4, Nacl I/O & Bowel function: LBM 12/19, OGT to LWS Skin Integrity: Abdominal Lap sites x 8, trace edema FROILAN feet/leg Estimated Nutrition Needs: 5950-1735 kcals per day (20-25 kcals/kg) 69-83 g protein per day (1-1.2 g/kg) Fluids consistent with kcal needs or per MD Assessment: Chart reviewed, events noted. Patient recently got ventral hernia repair done on 12/21 as outpatient procedure, had decreased PO intake after surgery, CXR concerning for possible aspiration PNA. Patient is currently intubated and sedated with Precedex, is following commands. Has OGT to low wall suction. See enteral nutrition recs below, will follow hospital course. Dx: Inadequate protein energy intake r/t clinical condition AEB intubated, sedated, NPO. Intervention: EN recs as stated below, replace K+ Monitoring, Evaluation and Goals: 1. EN consistent with estimated needs. 2. Lytes, glucose WNL. Monitor: Per protocol, criteria to determine if above goals met Recommendations: [facility] Nutrition Therapy DATE: 12/25/16 Patient: BRITTA SCHMITT Physician: ZACK Address: [address] [place] [address] Room/Bed: [address], Zip: [place] [address] Admit Date: 12/24/16 Date of : [birth year] Height: 4 11 Weight: 152 69 1. Replace lytes prn (K+ low). 2. Once medically feasible, if to remain intubated > 48 hours suggest starting enteral nutrition with Jevity 1.5 @ 20 ml/hr and increase by 10 ml q 4 hours until goal rate of 45 ml/hr is reached, to provide 1620 kcals, 69 g protein and 821 ml water. Once at goal rate add free water flushes per MD, suggest 200 ml QID. 3. If extubated advance to regular diet as tolerated. Suggest COMPUTER ENGINEER eval if intubated > [address] will follow hospital course Moderate-severe nutrition risk Respectfully, Krista Kinsey, ELDA, LD [employer] [facility] [employer] cc: client file
--- NOTE | ~2016-12-24 | CO ---
Unit #: [id number] #: [id number] Patient: BRITTA SCHMITT [id number] [facility]. [place], [place] [address] [id number] I MR#: [id number] NAME: BRITTA SCHMITT ROOM: [facility] Age: 51 Sex: F Admission Date: 12/24/2016 : 1965 Attending Physician: Savanah Sandy M.D. Primary Care Physician: Jovita Velasquez M.D. Consultation Date: 12/24/2016 CONSULTATION REPORT HISTORY OF PRESENT ILLNESS This is a 51-year-old lady with history of Down syndrome. The patient had an outpatient laparoscopic repair of ventral hernia obtained during the cholecystectomy. On patient (1) home she felt relatively good. She was a little bit weaker on Tuesday. This morning, the patient became acutely dyspneic, was brought into the emergency room, had progressively worse shortness of air, progressively worse dyspnea, was placed on a ventilator. The patient required significant treatment for hypoxia. She was placed on Flolan, PEEP was increased and the patient had a progressive dyspnea. The patient had no previous symptoms. She was kind of gurgling around 6:30, difficult to arouse. The patient had some emesis in the airway and poorly responsive. The chest x-ray shows bilateral lower lobe increasing infiltrates, placed on treatment for HCAP with vancomycin, tobramycin, and Zosyn. Due to her recent surgery, she was given IV fluids. The patient continues to be hypotensive. Lactic acid was 6.9. We were asked to see her for further treatment of her sepsis. PAST MEDICAL HISTORY Significant for outpatient laparoscopic reduction of ventral hernia on 12/21/2016, history of syncope, history of Down disease, history of chronic lung disease on 2 L at night, hypertension, and hypothyroidism. PAST SURGICAL HISTORY Significant for laparoscopic hernia repair, hysterectomy, cholecystectomy, and left foot surgery. SOCIAL HISTORY The patient lives with her mother. She is independent with activities of daily living. No tobacco or alcohol use. FAMILY HISTORY Notable for father having colon cancer. Mother has hypertension. HOME MEDICATIONS Appears to be on Synthroid, amitriptyline, TriCor, and ergocalciferol. REVIEW OF SYSTEMS Unable to be obtained, because the patient is on the vent. PHYSICAL EXAMINATION VITAL SIGNS: T-current 101.3, pulse 104, respiratory rate 22, blood pressure 98/46. HEENT: Extraocular movements are intact. Pupils equal, round, and reactive to light. Head is normocephalic and atraumatic. The patient is Unit #: [id number] #: [id number] Patient: BRITTA SCHMITT oropharyngeally intubated. NECK: Has a right IJ. There is no accessory muscle use. There is no JVD. CHEST: Shows decreased breath sounds bilaterally. CARDIOVASCULAR: Regular rate. No gallop. ABDOMEN: Soft, nontender, and nondistended. EXTREMITIES: Show edema, trace to +1. DIAGNOSTIC STUDIES LABORATORY RESULTS: White count 11.9, hemoglobin 14.1, and platelets of 329. Lactic acid 3.0. BNP is 60. BUN and creatinine 10/1.2. Procalcitonin is 25.6. IMAGING STUDIES: Chest x-ray shows increased infiltrates bilaterally. ASSESSMENT AND PLAN 1. Neuro: The patient is mildly sedated due to hypotension. The patient does wake up. Altered mental status likely secondary to hypercapnia which was associated with respiratory failure. 2. Respiratory failure: The patient looks like she has ALI, probably aspiration pneumonia. The patient is being treated for healthcare-associated pneumonia. 3. Cardiovascular: The patient is on replacement for the Solu-Cortef. 4. Infectious disease: The patient is being treated for healthcare-associated pneumonia. We are going to do frequent sputum cultures. 5. Gastrointestinal: The patient to have Dobbhoff tube placed and begin tube feeds. 6. Endocrine: Observe for adrenal insufficiency, replace. 7. Renal. The patient has renal insufficiency. May be dehydration, hopefully not acute tubular necrosis. We will monitor urine output closely. 8. Disposition: Will try to wean down the FIO2 then we will try to start weaning the PEEP and then slowly wean the Flolan as tolerated. Thank you very much. Please page me at [phone] if you have any questions. Dictated by... Oswald Gómez M.D. DARLYN/velasquez TD: 12/25/2016 07:14 JOB #: [id number] CONSULTATION REPORT Page 1 of 1 X Adrian Gómez MD CONSULTATION REPORT
--- NOTE | ~2016-12-24 | HP ---
Unit #: [id number] #: [id number] Patient: BRITTA SCHMITT [id number] [facility]. [place], [place] [address] [id number] I MR#: [id number] NAME: BRITTA SCHMITT ROOM: [address]67[address] Age: 51 Sex: F Admission Date: 12/24/2016 : 1965 Attending Physician: Savanah Sandy M.D. Primary Care Physician: Jovita Velasquez M.D. HISTORY AND PHYSICAL REVISED REPORT CHIEF COMPLAINT Short of air. HISTORY OF PRESENT ILLNESS The patient is a 51-year-old female with past medical history of chronic lung disease, chronic respiratory failure, hyperlipidemia, hypothyroidism, Down syndrome, who presented to the emergency department for evaluation of the above. History is obtained from chart review and discussion with the ER staff, as well as from the patient's mother who is at the bedside. The patient underwent laparoscopic reduction and repair of ventral hernia on December 21, 2016, by Dr. Moreno. She was discharged home as this was an outpatient procedure. The patient's family states that she had been doing okay. She has had decreased p.o. intake but had been eating some. She had not yet had a bowel movement. She was not vomiting. This morning her mother noticed that she was "gurgling" around 6:30. She was difficult to rouse. EMS was called. Upon EMS arrival, she was noted to be with agonal respirations and emesis in the airway. She was initially unresponsive but woke after bag ventilation. She was brought to the emergency department for further evaluation. In the emergency department, initial oxygen saturation was 75% on room air, pulse 150, respirations 23, blood pressure 130/108. She was ultimately intubated. Chest x-ray shows findings concerning for aspiration pneumonia. She was given vancomycin, tobramycin and Zosyn as well as a two liter normal saline bolus. Additional notable labs include a lactic acid of 6.9. She is being admitted to [facility] for evaluation and further treatment. PAST MEDICAL HISTORY 1. Outpatient laparoscopic reduction and repair of ventral hernia on December 21, 2016. 2. Admission to [facility], August 01, 2013, for a syncopal episode. 3. History of Down syndrome. 4. Chronic lung disease on home oxygen two liters at night. She is followed by Dr. Rothman. 5. Hypertension. 6. Hypothyroidism. PAST SURGICAL HISTORY 1. Laparoscopic hernia repair. 2. Left foot surgery. Unit #: [id number] #: [id number] Patient: BRITTA SCHMITT 3. Hysterectomy. SOCIAL HISTORY The patient lives with her mother. She is independent with activities of daily living. There is no tobacco or alcohol use. Her CODE status is a FULL CODE. FAMILY HISTORY Notable for her father having colon cancer. Her mother has hypertension. ALLERGIES No known allergies. HOME MEDICATIONS 1. Synthroid. 2. Amitriptyline. 3. TriCor. 4. Ergocalciferol. Home medications will need to be reviewed and reviewed. REVIEW OF SYSTEMS A complete review of systems is unobtainable from the patient due to current intubation but negative except as indicated in the HPI per the patient's family. PHYSICAL EXAMINATION GENERAL APPEARANCE: The patient is a female with Down faces. VITAL SIGNS: Temperature 101.4. Pulse 150. Respirations 23. Blood pressure 130/108 but dropped to 68/48. Oxygen saturation initially 76% on room air. HEENT: The head is atraumatic. She does have some dried emesis about the face. NECK: Supple. Trachea is midline. CARDIOVASCULAR: Tachycardiac in the one teens. LUNGS: Scattered rhonchi. ABDOMEN: Distended. The patient does have bandages covering recent laparoscopic incisions. Bowel sounds are decreased. EXTREMITIES: Nontender with no pedal edema. NEUROLOGIC: The patient is currently intubated and sedated. PSYCHIATRIC: Unable to assess. SKIN: Of examined areas is warm and dry. DIAGNOSTIC STUDIES LABORATORY: Troponin is less than 0.05. Arterial blood gas shows pH of 7.286, pO2 47, PO2 63.8 on BiPAP at 12/6 with an FIO2 of 100%. Complete blood count notable for WBC count of 11.4. INR is 1.1. BNP is 60. Lactic acid 6.9. Comprehensive metabolic panel notable for potassium of 3.4, bicarb 21, glucose 179, calcium 8.3. AST and ALT are 57 and 48 respectively, alkaline phosphatase 115, total protein 5.9, albumin 2.5. Urinalysis notable for 2+ blood. IMAGING: Chest x-ray shows findings concerning for aspiration pneumonia. CARDIOVASCULAR: EKG shows sinus tachycardia with a rate of 139 beats per minute. ASSESSMENT Unit #: [id number] #: [id number] Patient: BRITTA SCHMITT The patient is a 61-year-old female with: 1. Acute on chronic respiratory failure. 2. Aspiration pneumonia. The patient has received vancomycin, Zosyn and tobramycin in the emergency department. 3. Sepsis. The patient received two liters of normal saline. 4. Hypokalemia. 5. Mild transaminitis. 6. Chronic lung disease followed by Dr. Rothman. 7. Hyperlipidemia. 8. Hypothyroidism. 9. Down syndrome. PLAN 1. Admit to ICU. 2. NPO. 3. Normal saline at 75 mL/hour. 4. Consult Dr. Rothman regarding acute on chronic respiratory failure. 5. Blood cultures x2. 6. Sputum culture and sensitivity. 7. Procalcitonin level. 8. Streptococcal and legionella urine antigen. 9. Vancomycin, tobramycin, Zosyn for pneumonia pending further workup. 10. DuoNeb q.4 hours. 11. Sepsis protocol with repeat lactic acid. 12. Levophed drip for MAP greater than 65. 13. Replace potassium. 14. Check magnesium level. 15. Serial cardiac enzymes. 16. Consult Dr. Moreno regarding recent surgery. 17. Check TSH. 18. Check 2-D echo. 19. Urine culture and sensitivity on urine in the lab to follow up hematuria. 20. Repeat labs in the morning including magnesium. 21. SCDs for DVT prophylaxis. 22. Protonix for GI prophylaxis. 23. Regarding CODE status, the patient is a FULL CODE. Thirty-two minutes critical care time spent in the care of this patient (10:50 to 11:22 a.m.) Dictated by Savanah Sandy M.D. Baljeet TD: 12/24/2016 11:52 JOB #: [id number] Unit #: [id number] #: [id number] Patient: BRITTA SCHMITT HISTORY AND PHYSICAL Page 1 of 1 X Savanah Sandy MD X HISTORY AND PHYSICAL
--- NOTE | ~2016-12-24 | CR72 ---
[facility] A Service of [facility] & [facility] RADIOLOGY TEXT RESULTS PATIENT: BRITTA SCHMITT LOCATION: [facility]-01 : [birth year] UNIT #: [id number] AGE: [address]: Savanna Foss MD SEX: F ORDER DR: [id number] [facility] [address] [place], [place] [address] [id number] I MR#: [id number] Acc #: [id number] NAME: BRITTA SCHMITT : 1965 SEX: F STUDY DATE/TIME: 01/04/2017 9:43 UNIT: [facility] ROOM: [facility] STUDY DESCRIPTION: CR Chest Single View Portable Attending Physician: Savanna Foss M.D. Ordering Physician: Roberto Rothman M.D. Primary Care Physician: Jovita Velasquez M.D. MEDICAL IMAGING REPORT This report is preliminary unless electronic signature is present EXAM Portable chest HISTORY Shortness of breath. Respiratory failure today. COMPARISON Earlier today. FINDINGS PICC line is stable. There is improved inspiratory volume with decreased bibasilar atelectasis. Patchy infiltrates remain. Heart size is stable. IMPRESSION Improved inspiratory volume with decreased atelectasis in the lung bases. No other change. Dictated by... Charlie Florez M.D. THIS IS AN ELECTRONICALLY VERIFIED REPORT Charlie Florez M.D. at 01/04/2017 5:09 PM oJdi TD: 01/04/2017 10:31 JOB #: [id number] MEDICAL IMAGING REPORT Page 1 of 1 COPY
--- NOTE | ~2016-12-24 | US84 ---
[id number] [facility] [address] [place], [place] [address] [id number] I MR#: [id number] Acc #: [id number] NAME: BRITTA SCHMITT : 1965 SEX: F STUDY DATE/TIME: 12/24/2016 22:05 UNIT: [facility] ROOM: [facility] STUDY DESCRIPTION: US LE Veins Complete Ever Stdy Attending Physician: Savanah Sandy M.D. Ordering Physician: Savanah Sandy M.D. Primary Care Physician: Jovita Velasquez M.D. MEDICAL IMAGING REPORT This report is preliminary unless electronic signature is present EXAM Venous Doppler ultrasound, both legs, 12/24/2016 HISTORY A 51-year-old female with 2-day history of shortness of air. Recent hernia repair surgery 1 week ago. Evaluation for potential pulmonary embolism. Evaluate for DVT. TECHNIQUE Venous ultrasound examination of both lower extremities was performed using grayscale, spectral Doppler and color flow Doppler imaging. FINDINGS The examination is negative. There is no evidence of deep venous thrombus from the groin to the lower calf bilaterally. Visualized greater saphenous veins are also patent. IMPRESSION Negative examination. No evidence of lower extremity deep venous thrombosis. Dictated by... Kurt Kamara M.D. THIS IS AN ELECTRONICALLY VERIFIED REPORT Kurt Kamara M.D. at 12/27/2016 5:59 AM Pooja TD: 12/25/2016 20:49 JOB #: [id number] MEDICAL IMAGING REPORT Page 1 of 1 COPY
--- NOTE | ~2016-12-24 | CR72 ---
[facility] A Service of [facility] & [facility] RADIOLOGY TEXT RESULTS PATIENT: BRITTA SCHMITT LOCATION: [place] [id number] : [birth year] UNIT #: [id number] AGE: [address]: Savanna Foss MD SEX: F ORDER DR: [id number] [facility] [address] [place], [place] [address] [id number] I MR#: [id number] Acc #: [id number] NAME: BRITTA SCHMITT : 1965 SEX: F STUDY DATE/TIME: 01/01/2017 4:51 UNIT: [facility] ROOM: [facility] STUDY DESCRIPTION: CR Chest Single View Portable Attending Physician: Savanna Foss M.D. Ordering Physician: Oswald Gómez M.D. Primary Care Physician: Jovita Velasquez M.D. MEDICAL IMAGING REPORT This report is preliminary unless electronic signature is present EXAM AP portable chest 01/01/2017 HISTORY Shortness of air, aspiration, respiratory failure. Postop hernia surgery. Follow up inpatient cardiopulmonary status. TECHNIQUE AP portable chest x-ray. FINDINGS The exam shows no significant change since yesterday. Lung volumes are low. Mild, somewhat patchy diffuse interstitial opacity throughout both lungs, greatest at the lung bases. Stable mild cardiomegaly. Right IJ central line remains in good position. IMPRESSION Stable portable chest radiograph, unchanged since yesterday. Dictated by... Kurt Kamara M.D. THIS IS AN ELECTRONICALLY VERIFIED REPORT Kurt Kamara M.D. at 01/01/2017 5:58 AM SEBASTIAN/ej TD: 01/01/2017 05:10 JOB #: [id number] MEDICAL IMAGING REPORT Page 1 of 1 COPY
--- NOTE | ~2016-12-24 | FU ---
[facility] Nutrition Therapy DATE: 12/28/16 Patient: BRITTA SCHMITT Physician: ZACK Address: [address] [address] Room/Bed: [address], Zip: [place] [address] Admit Date: 12/24/16 Date of : 61 Height: 4 11 Weight: 163 74 NUTRITION MONITORING/FOLLOW-UP: Reason: Nutrition follow up and consult RE: TPN and Enteral nutrition recommendations Anthropometrics: Ht: 4'" Adm wt: 69 kg BMI: 30 Wt 12/28: 74 kg Labs: Cl- 99 Gluc 136 Ca++ 7.8 Meds: Reglan, synthroid (IV), levaquin (IV), protonix, NaCl, vitamin D I&O's: 2696/2835, last BM 12/19, OG to medium wall suction with 300 cc output, abdomen soft per MD note. Skin: Mepiplex to coccyx Bruising to abdomen/ BUE 8 lap sites to abdomen Edema: Pedal- trace Estimated Nutrition Needs: Increased protein needs 9612-8388 kcals (20-25 kcals/kg) 83-103 grams protein (1.2-1.5 grams/kg) Assessment: Chart reviewed, events noted. Pt is POD#8 for ventral hernia repair, not receiving nutrition support at this time. RD received consult to assess for enteral nutrition and TPN needs. Per MD note, nutrition support will be decided upon pending extubation status. Surgery also notes that bowel needs to be stimulated, and started a bowel regimen. RD recommending enteral nutrition over TPN in order to promote gut function. Please see recommendations below. Dx: Inadequate protein-energy intake RT clinical condition AEB intubated, sedated, NPO- ACTIVE Intervention: 1. Enteral nutrition 2. TPN if indicated Monitoring, Evaluation and Goals: 1. Enteral nutrition; initiate, tolerate, provide >80% goal volume as tolerated and medically feasible 2. Labs; WNL [facility] Nutrition Therapy DATE: 12/28/16 Patient: BRITTA SCHMITT Physician: ZACK Address: [address] [address] Room/Bed: [address], Zip: [place] [address] Admit Date: 12/24/16 Date of : 61 Height: 4 11 Weight: 163 74 3. Skin; promote healing 4. Weight; preserve lean body mass 5. GI; promote bowel stimulation Recommendations: 1. Once medically feasible, recommend starting enteral nutrition with trickle feeds to stimulate bowel function. Recommend starting Jevity 1.5 @ 10 mL/hr. Increase by 10 mL q 8 hrs as tolerated to goal of 45 mL/hr + Prostat once daily to provide: 1720 kcals/ 84 grams protein/ 821 mL free H20 2. If the pt is unable to tolerate enteral nutrition, consider TPN (25% dextrose) for nutrition support. Start TPN at a low rate and gradually increase to goal of 70 mL/hr. TPN (25% dextrose) @ 70 mL/hr will provide: 1428 kcals dextrose 1764 kcals total 84 grams protein GUR= 4.2 3. If TPN is ordered, please check triglyceride levels. If triglycerides are WNL, consider cycling lipids q 72 hrs to prevent fatty acid deficiency. This will provide an additional 167 kcals on days cycled. Status: Pt is at severe nutritional risk. RD will continue to follow. Respectfully, CARRIE ROYAL RD, LD [employer] [facility] cc: client file
--- NOTE | ~2016-12-24 | CR72 ---
[facility] A Service of [facility] RADIOLOGY TEXT RESULTS PATIENT: BRITTA SCHMITT LOCATION: [place] [address]- : 61 UNIT #: [id number] AGE: [address]: Savanna Foss MD SEX: F ORDER DR: [id number] [facility] [address] [place], [place] [address] [id number] MR#: [id number] Acc #: [id number] NAME: BRITTA SCHMITT : 1965 SEX: F STUDY DATE/TIME: 01/02/2017 9:40 UNIT: [facility] ROOM: [facility] STUDY DESCRIPTION: CR Chest Single View Portable Attending Physician: Savanna Foss M.D. Ordering Physician: Roberto Rothman M.D. Primary Care Physician: Jovita Velasquez M.D. MEDICAL IMAGING REPORT This report is preliminary unless electronic signature is present EXAM Portable chest HISTORY Shortness of air for 2 weeks. Aspiration. FINDINGS Moderate focal infiltrate in the lateral right lung base has increased since earlier today at 0451 hours. Additional mild interstitial prominence in both bases persists. Small hiatal hernia. Right IJ central line tip in the mid SVC, approximately 6 cm above the junction SVC and right atrium. Dictated by... Luigi Caceres M.D. THIS IS AN ELECTRONICALLY VERIFIED REPORT Luigi Caceres M.D. at 01/02/2017 10:49 PM DFL/pcl TD: 01/02/2017 17:09 JOB #: [id number] MEDICAL IMAGING REPORT Page 1 of 1 COPY
[~2016-12-24 07:34] MED LIST changes: -ALLEGRA ALLERG180 MG PO; -AMITRIPTYLINE H25 MG PO; -FERROUS GLUCON324 MG PO; -LEVOTHYROXINE112 MCG PO; -LINZESS145 MCG PO; -MOTRIN IB200 M1 PO; -OXYGEN; -SINGULAIR PO; -VITAMIN D2 PO
[2016-12-24 07:50] LABS: POC - CKMB 1.3 ng/mL (0.0-7.9); POC - TROPONIN <0.05 ng/mL (<=0.05)
[2016-12-24 08:05] LABS: ARTERIAL BLD GAS O2 SATURATION 89.4 % (90.0-100.0); ARTERIAL BLOOD GAS CARBOXY HB 1.3 %sat (0.0-9.0); ARTERIAL BLOOD GAS HCO3 22.4 mmol/L; ARTERIAL BLOOD GAS MET HB 0.8 %sat (0.0-2.0); ARTERIAL BLOOD GAS pH 7.286 (7.350-7.450)
[2016-12-24 08:06] LABS: ARTERIAL BLOOD GAS ART SITE RIGHT BRACHIAL; ARTERIAL BLOOD GAS PO2 63.8 mmHg (80.0-100); ARTERIAL DRAW? YES
[2016-12-24 08:09] LABS: BASOPHIL% 0.2 % (0-2.5); EOSINOPHIL% 0.2 % (0.0-7.0); HEMOGLOBIN 14.1 gm/dL (12.0-16.0); LYMPHOCYTE# 3.8 X10e3 (1.0-3.5); LYMPHOCYTE% 33.6 % (17.0-45.0); MEAN CELL VOLUME 93.8 FL (83-96); MEAN CORPUSCULAR HEMOGLOBIN 29.4 PG (28-34); MEAN CORPUSCULAR HGB CONC 31.4 g/dL (30-36); MEAN PLATELET VOLUME 7.9 FL (6.5-11.5); MONOCYTE# 0.1 X10e3 (0-1.0); MONOCYTE% 1.1 % (3.0-12.0); NEUTROPHIL# 7.4 X10e3 (1.5-7.1); NEUTROPHIL% 64.9 % (40-75); PLATELET COUNT 324 X10e3 (140-420); RED CELL DISTRIBUTION WIDTH 13.4 % (11.0-15.5); WHITE BLOOD COUNT 11.4 X10e3 (4.0-10.5)
[2016-12-24 08:10] LABS: DIFF IND NO
[2016-12-24 08:25] LABS: URINE SOURCE CATH
[2016-12-24 08:29] LABS: INR 1.1; PROTHROMBIN TIME (PATIENT) 11.3 SECONDS (9.6-11.5)
[2016-12-24 08:49] LABS: URINE APPEARANCE CLEAR; URINE BILIRUBIN NEG (NEG); URINE BLOOD 2+ (NEG); URINE COLOR YELLOW; URINE GLUCOSE NEG (NEG); URINE KETONE NEG (NEG); URINE LEUKOCYTE ESTERASE NEG (NEG); URINE NITRATE NEG (NEG); URINE PROTEIN NEG (NEG); URINE SPECIFIC GRAVITY 1.004 (1.003-1.035)
[2016-12-24 08:51] LABS: URBCS1 AUWI 0-2 /[HPF] (0-2); URINE BACTERIA AUWI NEG (NEGATIVE); URINE SQUAMOUS EPITHELIAL CELL NONE SEEN /[HPF]; UWBCS1 AUWI 0-2 (0-5)
[2016-12-24 09:15] LABS: ALBUMIN SERUM 2.5 g/dL (3.5-5.0); BILIRUBIN, DIRECT 1.1 mg/dL (0.0-0.2); BILIRUBIN,INDIRECT 0.8 mg/dL (0.0-0.9); BILIRUBIN,TOTAL 1.9 mg/dL (0.2-2.0); BUN/CREATININE RATIO 8.33; CALCIUM SERUM 8.3 mg/dL (8.4-10.2); CREATININE SERUM 1.2 mg/dL (0.6-1.4); GLOM FILT RATE Estimated 51.6 mL/min (>60); POTASSIUM 3.4 mmol/L (3.5-5.1); PROTEIN TOTAL SERUM 5.9 g/dL (6.0-8.3)
[2016-12-24 09:34] LABS: ARTERIAL BLOOD GAS CARBOXY HB 1.1 %sat (0.0-9.0); ARTERIAL BLOOD GAS MET HB 0.8 %sat (0.0-2.0); ARTERIAL BLOOD GAS PCO2 50.3 mmHg (35.0-45.0); ARTERIAL BLOOD GAS PO2 51.5 mmHg (80.0-100); ARTERIAL BLOOD GAS pH 7.286 (7.350-7.450)
[2016-12-24 09:35] LABS: ARTERIAL BLOOD GAS ALLEN TEST NORMAL; ARTERIAL BLOOD GAS ART SITE LEFT RADIAL; ARTERIAL DRAW? YES
[2016-12-24 09:36] LABS: CULTURE INDICATED? NO
[2016-12-24 13:36] LABS: ARTERIAL BLD GAS O2 SATURATION 90.9 % (90.0-100.0); ARTERIAL BLOOD GAS CARBOXY HB 0.7 %sat (0.0-9.0); ARTERIAL BLOOD GAS HCO3 22.5 mmol/L; ARTERIAL BLOOD GAS MET HB 0.9 %sat (0.0-2.0); ARTERIAL BLOOD GAS PCO2 48.2 mmHg (35.0-45.0); ARTERIAL BLOOD GAS pH 7.278 (7.350-7.450)
[2016-12-24 13:40] LABS: ARTERIAL BLOOD GAS ALLEN TEST NORMAL; ARTERIAL BLOOD GAS ART SITE LEFT RADIAL; ARTERIAL BLOOD GAS DELIVERY VENT; ARTERIAL BLOOD GAS PO2 66.7 mmHg (80.0-100); ARTERIAL BLOOD GAS VENT MODE AC; ARTERIAL DRAW? YES
[2016-12-24 15:18] LABS: MB 3.9 ng/ml
[2016-12-24 20:09] LABS: %MB 1.8 % (0.0-4.0); MB 3.5 ng/ml
[2016-12-25 03:56] LABS: ARTERIAL BLD GAS O2 SATURATION 98.3 % (90.0-100.0); ARTERIAL BLOOD GAS CARBOXY HB 0.5 %sat (0.0-9.0); ARTERIAL BLOOD GAS HCO3 23.6 mmol/L; ARTERIAL BLOOD GAS MET HB 0.8 %sat (0.0-2.0); ARTERIAL BLOOD GAS PCO2 43.5 mmHg (35.0-45.0); ARTERIAL BLOOD GAS pH 7.342 (7.350-7.450)
[2016-12-25 04:02] LABS: ARTERIAL BLOOD GAS ALLEN TEST NORMAL; ARTERIAL BLOOD GAS ART SITE LEFT RADIAL; ARTERIAL BLOOD GAS DELIVERY VENT; ARTERIAL BLOOD GAS VENT MODE AC; ARTERIAL DRAW? YES
[2016-12-25 05:47] LABS: BASOPHIL% 0.2 % (0-2.5); HEMATOCRIT 36.3 % (35.0-45.0); LYMPHOCYTE# 0.5 X10e3 (1.0-3.5); LYMPHOCYTE% 1.9 % (17.0-45.0); MEAN CELL VOLUME 91.6 FL (83-96); MEAN CORPUSCULAR HEMOGLOBIN 29.5 PG (28-34); MEAN CORPUSCULAR HGB CONC 32.2 g/dL (30-36); MEAN PLATELET VOLUME 7.6 FL (6.5-11.5); MONOCYTE# 1.3 X10e3 (0-1.0); MONOCYTE% 4.7 % (3.0-12.0); NEUTROPHIL# 25.4 X10e3 (1.5-7.1); NEUTROPHIL% 93.2 % (40-75); PLATELET COUNT 302 X10e3 (140-420); RED BLOOD COUNT 3.97 X10e (3.90-5.30); RED CELL DISTRIBUTION WIDTH 13.3 % (11.0-15.5)
[2016-12-25 05:55] LABS: HEMOGLOBIN 11.7 gm/dL (12.0-16.0); WHITE BLOOD COUNT 27.2 X10e3 (4.0-10.5)
[2016-12-25 05:56] LABS: DIFF IND YES
[2016-12-25 06:41] LABS: PLATELET ESTIMATE NORMAL (NORMAL)
[2016-12-25 06:57] LABS: BILIRUBIN,TOTAL 1.2 mg/dL (0.2-2.0); BUN/CREATININE RATIO 11.25; CALCIUM SERUM 7.9 mg/dL (8.4-10.2); CREATININE SERUM 0.8 mg/dL (0.6-1.4); GLOM FILT RATE Estimated 84.2 mL/min (>60); MAGNESIUM 1.7 mg/dL (1.6-3.0); POTASSIUM 3.4 mmol/L (3.5-5.1); PROTEIN TOTAL SERUM 5.6 g/dL (6.0-8.3)
[2016-12-25 23:53] LABS: URINE APPEARANCE CLEAR; URINE BILIRUBIN NEG (NEG); URINE BLOOD 2+ (NEG); URINE COLOR YELLOW; URINE GLUCOSE NEG (NEG); URINE KETONE NEG (NEG); URINE LEUKOCYTE ESTERASE NEG (NEG); URINE NITRATE NEG (NEG); URINE PROTEIN NEG (NEG); URINE SPECIFIC GRAVITY 1.012 (1.003-1.035)
[2016-12-25 23:55] LABS: URBCS1 AUWI 0-2 /[HPF] (0-2); URINE BACTERIA AUWI NEG (NEGATIVE); URINE SQUAMOUS EPITHELIAL CELL NONE SEEN /[HPF]; UWBCS1 AUWI 0-2 (0-5)
[2016-12-26 04:01] LABS: ARTERIAL BLD GAS O2 SATURATION 96.4 % (90.0-100.0); ARTERIAL BLOOD GAS CARBOXY HB 0.7 %sat (0.0-9.0); ARTERIAL BLOOD GAS HCO3 27.5 mmol/L; ARTERIAL BLOOD GAS MET HB 0.8 %sat (0.0-2.0); ARTERIAL BLOOD GAS PCO2 39.6 mmHg (35.0-45.0); ARTERIAL BLOOD GAS PO2 81.5 mmHg (80.0-100); ARTERIAL BLOOD GAS pH 7.449 (7.350-7.450)
[2016-12-26 04:04] LABS: ARTERIAL BLOOD GAS ALLEN TEST NORMAL; ARTERIAL BLOOD GAS ART SITE RIGHT RADIAL; ARTERIAL BLOOD GAS DELIVERY VENT; ARTERIAL BLOOD GAS VENT MODE AC; ARTERIAL DRAW? YES
[2016-12-26 05:36] LABS: HEMATOCRIT 33.8 % (35.0-45.0); HEMOGLOBIN 10.9 gm/dL (12.0-16.0); LYMPHOCYTE# 0.7 X10e3 (1.0-3.5); LYMPHOCYTE% 2.7 % (17.0-45.0); MEAN CELL VOLUME 89.9 FL (83-96); MEAN CORPUSCULAR HEMOGLOBIN 28.9 PG (28-34); MEAN CORPUSCULAR HGB CONC 32.1 g/dL (30-36); MEAN PLATELET VOLUME 7.9 FL (6.5-11.5); MONOCYTE% 4.3 % (3.0-12.0); NEUTROPHIL# 22.6 X10e3 (1.5-7.1); PLATELET COUNT 293 X10e3 (140-420); RED BLOOD COUNT 3.76 X10e (3.90-5.30); RED CELL DISTRIBUTION WIDTH 13.4 % (11.0-15.5); WHITE BLOOD COUNT 24.3 X10e3 (4.0-10.5)
[2016-12-26 05:39] LABS: DIFF IND NO
[2016-12-26 07:20] LABS: BUN/CREATININE RATIO 12.85; CALCIUM SERUM 8.3 mg/dL (8.4-10.2); CREATININE SERUM 0.7 mg/dL (0.6-1.4); GLOM FILT RATE Estimated 98.9 mL/min (>60); POTASSIUM 3.4 mmol/L (3.5-5.1)
[2016-12-27 05:16] LABS: HEMATOCRIT 30.8 % (35.0-45.0); HEMOGLOBIN 10.1 gm/dL (12.0-16.0); LYMPHOCYTE# 0.9 X10e3 (1.0-3.5); LYMPHOCYTE% 4.5 % (17.0-45.0); MEAN CELL VOLUME 88.5 FL (83-96); MEAN CORPUSCULAR HEMOGLOBIN 28.9 PG (28-34); MEAN CORPUSCULAR HGB CONC 32.6 g/dL (30-36); MEAN PLATELET VOLUME 7.6 FL (6.5-11.5); MONOCYTE# 0.5 X10e3 (0-1.0); MONOCYTE% 2.3 % (3.0-12.0); NEUTROPHIL# 18.9 X10e3 (1.5-7.1); NEUTROPHIL% 93.2 % (40-75); PLATELET COUNT 246 X10e3 (140-420); RED BLOOD COUNT 3.48 X10e (3.90-5.30); RED CELL DISTRIBUTION WIDTH 13.5 % (11.0-15.5); WHITE BLOOD COUNT 20.3 X10e3 (4.0-10.5)
[2016-12-27 05:19] LABS: DIFF IND NO
[2016-12-27 06:15] LABS: ARTERIAL BLD GAS O2 SATURATION 97.4 % (90.0-100.0); ARTERIAL BLOOD GAS CARBOXY HB 0.4 %sat (0.0-9.0); ARTERIAL BLOOD GAS HCO3 27.9 mmol/L; ARTERIAL BLOOD GAS PCO2 35.8 mmHg (35.0-45.0)
[2016-12-27 06:18] LABS: ARTERIAL BLOOD GAS ALLEN TEST NORMAL; ARTERIAL DRAW? YES
[2016-12-27 06:19] LABS: ARTERIAL BLOOD GAS ART SITE LEFT RADIAL; ARTERIAL BLOOD GAS DELIVERY VENT; ARTERIAL BLOOD GAS PO2 81.3 mmHg (80.0-100); ARTERIAL BLOOD GAS VENT MODE AC
[2016-12-27 06:43] LABS: CALCIUM SERUM 7.8 mg/dL (8.4-10.2); CREATININE SERUM 0.5 mg/dL (0.6-1.4); GLOM FILT RATE Estimated 110.5 mL/min (>60); MAGNESIUM 1.7 mg/dL (1.6-3.0); POTASSIUM 3.2 mmol/L (3.5-5.1)
[2016-12-27 08:49] LABS: ARTERIAL BLD GAS O2 SATURATION 92.3 % (90.0-100.0); ARTERIAL BLOOD GAS ALLEN TEST NORMAL; ARTERIAL BLOOD GAS ART SITE LEFT RADIAL; ARTERIAL BLOOD GAS CARBOXY HB 0.9 %sat (0.0-9.0); ARTERIAL BLOOD GAS DELIVERY VENT; ARTERIAL BLOOD GAS HCO3 26.9 mmol/L; ARTERIAL BLOOD GAS MET HB 0.8 %sat (0.0-2.0); ARTERIAL BLOOD GAS PCO2 39.2 mmHg (35.0-45.0); ARTERIAL BLOOD GAS PO2 65.1 mmHg (80.0-100); ARTERIAL BLOOD GAS VENT MODE AC; ARTERIAL BLOOD GAS pH 7.445 (7.350-7.450); ARTERIAL DRAW? YES
[2016-12-27] MEDS ORDERED: NEXIUM PO (16:16)
[2016-12-27] MEDS ORDERED: MOTRIN IB200 M1 PO (16:17)
[2016-12-27] MEDS ORDERED: SINGULAIR PO (16:17)
[2016-12-27] MEDS ORDERED: AMITRIPTYLINE H25 MG PO (16:17)
[2016-12-27] MEDS ORDERED: OXYGEN (16:18)
[2016-12-27] MEDS ORDERED: LEVOTHYROXINE112 MCG PO (16:18)
[2016-12-27] MEDS ORDERED: ALLEGRA ALLERG180 MG PO (16:18)
[2016-12-27] MEDS ORDERED: LINZESS145 MCG PO (16:19)
[2016-12-27] MEDS ORDERED: VITAMIN D2 PO (16:20)
[2016-12-27] MEDS ORDERED: FERROUS GLUCON324 MG PO (16:21)
[2016-12-28 03:13] LABS: BASOPHIL% 0.1 % (0-2.5); DIFF IND NO; HEMATOCRIT 31.6 % (35.0-45.0); HEMOGLOBIN 10.4 gm/dL (12.0-16.0); LYMPHOCYTE# 1.5 X10e3 (1.0-3.5); LYMPHOCYTE% 7.8 % (17.0-45.0); MEAN CELL VOLUME 88.9 FL (83-96); MEAN CORPUSCULAR HEMOGLOBIN 29.4 PG (28-34); MEAN CORPUSCULAR HGB CONC 33.1 g/dL (30-36); MEAN PLATELET VOLUME 7.9 FL (6.5-11.5); MONOCYTE# 0.8 X10e3 (0-1.0); MONOCYTE% 4.1 % (3.0-12.0); NEUTROPHIL# 16.7 X10e3 (1.5-7.1); PLATELET COUNT 279 X10e3 (140-420); RED BLOOD COUNT 3.55 X10e (3.90-5.30); RED CELL DISTRIBUTION WIDTH 13.3 % (11.0-15.5); WHITE BLOOD COUNT 18.9 X10e3 (4.0-10.5)
[2016-12-28 03:30] LABS: CALCIUM SERUM 7.8 mg/dL (8.4-10.2); CREATININE SERUM 0.7 mg/dL (0.6-1.4); GLOM FILT RATE Estimated 98.9 mL/min (>60); POTASSIUM 3.5 mmol/L (3.5-5.1)
[2016-12-28 21:42] LABS: URINE SOURCE CATH
[2016-12-28 22:04] LABS: URINE APPEARANCE CLEAR; URINE BILIRUBIN NEG (NEG); URINE BLOOD NEG (NEG); URINE COLOR YELLOW; URINE GLUCOSE NEG (NEG); URINE KETONE 1+ (NEG); URINE LEUKOCYTE ESTERASE NEG (NEG); URINE NITRATE NEG (NEG); URINE PROTEIN NEG (NEG); URINE SPECIFIC GRAVITY 1.019 (1.003-1.035)
[2016-12-29 03:33] LABS: HEMATOCRIT 31.2 % (35.0-45.0); HEMOGLOBIN 10.3 gm/dL (12.0-16.0); LYMPHOCYTE# 0.8 X10e3 (1.0-3.5); LYMPHOCYTE% 5.4 % (17.0-45.0); MEAN CELL VOLUME 88.6 FL (83-96); MEAN CORPUSCULAR HEMOGLOBIN 29.3 PG (28-34); MEAN CORPUSCULAR HGB CONC 33.1 g/dL (30-36); MEAN PLATELET VOLUME 7.9 FL (6.5-11.5); MONOCYTE# 0.8 X10e3 (0-1.0); MONOCYTE% 5.2 % (3.0-12.0); NEUTROPHIL% 89.4 % (40-75); PLATELET COUNT 286 X10e3 (140-420); RED BLOOD COUNT 3.52 X10e (3.90-5.30); RED CELL DISTRIBUTION WIDTH 13.2 % (11.0-15.5); WHITE BLOOD COUNT 14.5 X10e3 (4.0-10.5)
[2016-12-29 03:34] LABS: DIFF IND YES
[2016-12-29 03:53] LABS: ALBUMIN SERUM 2.1 g/dL (3.5-5.0); BILIRUBIN,TOTAL 0.8 mg/dL (0.2-2.0); BUN/CREATININE RATIO 21.42; CALCIUM SERUM 7.5 mg/dL (8.4-10.2); CREATININE SERUM 0.7 mg/dL (0.6-1.4); GLOM FILT RATE Estimated 98.9 mL/min (>60); MAGNESIUM 2.1 mg/dL (1.6-3.0); PHOSPHOROUS 1.4 mg/dL (2.5-4.6); POTASSIUM 3.4 mmol/L (3.5-5.1); PREALBUMIN 11.6 mg/dL (17.0-42.0); PROTEIN TOTAL SERUM 5.8 g/dL (6.0-8.3)
[2016-12-29 04:11] LABS: PLATELET ESTIMATE NORMAL (NORMAL)
[2016-12-29 04:12] LABS: RBC NORMAL YES
[2016-12-29 04:39] LABS: ARTERIAL BLD GAS O2 SATURATION 95.8 % (90.0-100.0); ARTERIAL BLOOD GAS CARBOXY HB 0.8 %sat (0.0-9.0); ARTERIAL BLOOD GAS HCO3 35.2 mmol/L; ARTERIAL BLOOD GAS MET HB 0.8 %sat (0.0-2.0); ARTERIAL BLOOD GAS PCO2 39.1 mmHg (35.0-45.0); ARTERIAL BLOOD GAS pH 7.564 (7.350-7.450)
[2016-12-29 04:40] LABS: ARTERIAL BLOOD GAS ALLEN TEST NORMAL; ARTERIAL BLOOD GAS ART SITE LEFT RADIAL; ARTERIAL BLOOD GAS DELIVERY VENT; ARTERIAL BLOOD GAS PO2 74.2 mmHg (80.0-100); ARTERIAL BLOOD GAS VENT MODE AC; ARTERIAL DRAW? YES
[2016-12-30 06:10] LABS: BASOPHIL% 0.1 % (0-2.5); HEMATOCRIT 31.3 % (35.0-45.0); LYMPHOCYTE% 8.9 % (17.0-45.0); MEAN CELL VOLUME 90.7 FL (83-96); MEAN PLATELET VOLUME 8.5 FL (6.5-11.5); MONOCYTE# 0.7 X10e3 (0-1.0); MONOCYTE% 5.7 % (3.0-12.0); NEUTROPHIL# 9.9 X10e3 (1.5-7.1); NEUTROPHIL% 85.3 % (40-75); PLATELET COUNT 274 X10e3 (140-420); RED BLOOD COUNT 3.45 X10e (3.90-5.30); RED CELL DISTRIBUTION WIDTH 13.3 % (11.0-15.5); WHITE BLOOD COUNT 11.6 X10e3 (4.0-10.5)
[2016-12-30 06:15] LABS: DIFF IND NO
[2016-12-30 06:57] LABS: ALBUMIN SERUM 2.8 g/dL (3.5-5.0); BILIRUBIN,TOTAL 0.7 mg/dL (0.2-2.0); BUN/CREATININE RATIO 21.42; CALCIUM SERUM 8.3 mg/dL (8.4-10.2); CREATININE SERUM 0.7 mg/dL (0.6-1.4); GLOM FILT RATE Estimated 98.9 mL/min (>60); MAGNESIUM 2.2 mg/dL (1.6-3.0); POTASSIUM 3.1 mmol/L (3.5-5.1); PROTEIN TOTAL SERUM 5.9 g/dL (6.0-8.3)
[2016-12-30 10:24] LABS: ARTERIAL BLOOD GAS CARBOXY HB 0.4 %sat (0.0-9.0); ARTERIAL BLOOD GAS HCO3 34.7 mmol/L; ARTERIAL BLOOD GAS MET HB 0.7 %sat (0.0-2.0); ARTERIAL BLOOD GAS PCO2 42.8 mmHg (35.0-45.0); ARTERIAL BLOOD GAS pH 7.516 (7.350-7.450)
[2016-12-30 10:27] LABS: ARTERIAL BLOOD GAS ART SITE RIGHT BRACHIAL; ARTERIAL BLOOD GAS VENT MODE CPAP; ARTERIAL DRAW? YES
[2016-12-31 05:45] LABS: BASOPHIL% 0.1 % (0-2.5); EOSINOPHIL% 0.1 % (0.0-7.0); HEMATOCRIT 31.3 % (35.0-45.0); HEMOGLOBIN 9.9 gm/dL (12.0-16.0); LYMPHOCYTE# 1.2 X10e3 (1.0-3.5); LYMPHOCYTE% 9.5 % (17.0-45.0); MEAN CELL VOLUME 91.7 FL (83-96); MEAN CORPUSCULAR HGB CONC 31.6 g/dL (30-36); MEAN PLATELET VOLUME 8.6 FL (6.5-11.5); MONOCYTE# 0.7 X10e3 (0-1.0); MONOCYTE% 5.2 % (3.0-12.0); NEUTROPHIL# 11.1 X10e3 (1.5-7.1); NEUTROPHIL% 85.1 % (40-75); PLATELET COUNT 292 X10e3 (140-420); RED BLOOD COUNT 3.41 X10e (3.90-5.30); RED CELL DISTRIBUTION WIDTH 14.2 % (11.0-15.5); WHITE BLOOD COUNT 13.1 X10e3 (4.0-10.5)
[2016-12-31 05:59] LABS: DIFF IND NO
[2016-12-31 06:51] LABS: ALBUMIN SERUM 2.5 g/dL (3.5-5.0); BILIRUBIN,TOTAL 0.6 mg/dL (0.2-2.0); BUN/CREATININE RATIO 26.66; CREATININE SERUM 0.6 mg/dL (0.6-1.4); GLOM FILT RATE Estimated 104.1 mL/min (>60); MAGNESIUM 2.3 mg/dL (1.6-3.0); PHOSPHOROUS 3.3 mg/dL (2.5-4.6); POTASSIUM 3.1 mmol/L (3.5-5.1); PROTEIN TOTAL SERUM 5.2 g/dL (6.0-8.3)
[2017-01-01 05:19] LABS: BASOPHIL% 0.1 % (0-2.5); EOSINOPHIL# 0.2 X10e3 (0-0.7); EOSINOPHIL% 1.9 % (0.0-7.0); HEMATOCRIT 34.4 % (35.0-45.0); HEMOGLOBIN 10.8 gm/dL (12.0-16.0); LYMPHOCYTE# 3.3 X10e3 (1.0-3.5); LYMPHOCYTE% 25.7 % (17.0-45.0); MEAN CORPUSCULAR HGB CONC 31.6 g/dL (30-36); MEAN PLATELET VOLUME 7.9 FL (6.5-11.5); MONOCYTE# 0.6 X10e3 (0-1.0); MONOCYTE% 4.7 % (3.0-12.0); NEUTROPHIL# 8.7 X10e3 (1.5-7.1); NEUTROPHIL% 67.6 % (40-75); PLATELET COUNT 284 X10e3 (140-420); RED BLOOD COUNT 3.74 X10e (3.90-5.30); WHITE BLOOD COUNT 12.9 X10e3 (4.0-10.5)
[2017-01-01 05:20] LABS: DIFF IND NO
[2017-01-01 06:02] LABS: ALBUMIN SERUM 2.5 g/dL (3.5-5.0); BILIRUBIN,TOTAL 0.7 mg/dL (0.2-2.0); BUN/CREATININE RATIO 21.25; CREATININE SERUM 0.8 mg/dL (0.6-1.4); GLOM FILT RATE Estimated 84.2 mL/min (>60); MAGNESIUM 2.2 mg/dL (1.6-3.0); PHOSPHOROUS 2.5 mg/dL (2.5-4.6); POTASSIUM 3.6 mmol/L (3.5-5.1); PROTEIN TOTAL SERUM 4.9 g/dL (6.0-8.3)
[2017-01-01 18:22] LABS: URINE BILIRUBIN NEG (NEG); URINE BLOOD 1+ (NEG); URINE COLOR YELLOW; URINE GLUCOSE NEG (NEG); URINE KETONE NEG (NEG); URINE LEUKOCYTE ESTERASE NEG (NEG); URINE NITRATE NEG (NEG); URINE PROTEIN NEG (NEG)
[2017-01-01 18:25] LABS: URINE BACTERIA AUWI NEG (NEGATIVE); URINE SQUAMOUS EPITHELIAL CELL NONE SEEN /[HPF]
[2017-01-01 21:10] LABS: ARTERIAL BLD GAS O2 SATURATION 93.1 % (90.0-100.0); ARTERIAL BLOOD GAS CARBOXY HB 0.7 %sat (0.0-9.0); ARTERIAL BLOOD GAS HCO3 31.4 mmol/L; ARTERIAL BLOOD GAS MET HB 0.6 %sat (0.0-2.0); ARTERIAL BLOOD GAS PCO2 42.4 mmHg (35.0-45.0); ARTERIAL BLOOD GAS pH 7.478 (7.350-7.450)
[2017-01-01 21:11] LABS: ARTERIAL BLOOD GAS ALLEN TEST NORMAL; ARTERIAL BLOOD GAS ART SITE RIGHT RADIAL; ARTERIAL DRAW? YES
[2017-01-01 21:12] LABS: ARTERIAL BLOOD GAS DELIVERY OXYMIZER
[2017-01-02 05:29] LABS: HEMATOCRIT 36.5 % (35.0-45.0); HEMOGLOBIN 11.6 gm/dL (12.0-16.0); MEAN CELL VOLUME 92.3 FL (83-96); MEAN CORPUSCULAR HEMOGLOBIN 29.4 PG (28-34); MEAN CORPUSCULAR HGB CONC 31.9 g/dL (30-36); MEAN PLATELET VOLUME 8.1 FL (6.5-11.5); RED BLOOD COUNT 3.96 X10e (3.90-5.30); RED CELL DISTRIBUTION WIDTH 14.3 % (11.0-15.5); WHITE BLOOD COUNT 13.1 X10e3 (4.0-10.5)
[2017-01-02 06:02] LABS: CALCIUM SERUM 7.9 mg/dL (8.4-10.2); CREATININE SERUM 0.8 mg/dL (0.6-1.4); GLOM FILT RATE Estimated 84.2 mL/min (>60); MAGNESIUM 2.1 mg/dL (1.6-3.0); POTASSIUM 3.7 mmol/L (3.5-5.1)
[2017-01-03 05:56] LABS: HEMATOCRIT 32.8 % (35.0-45.0); HEMOGLOBIN 10.4 gm/dL (12.0-16.0); MEAN CELL VOLUME 91.3 FL (83-96); MEAN CORPUSCULAR HEMOGLOBIN 28.9 PG (28-34); MEAN CORPUSCULAR HGB CONC 31.6 g/dL (30-36); MEAN PLATELET VOLUME 7.9 FL (6.5-11.5); RED BLOOD COUNT 3.6 X10e (3.90-5.30); RED CELL DISTRIBUTION WIDTH 14.4 % (11.0-15.5)
[2017-01-03 06:46] LABS: ALBUMIN SERUM 2.2 g/dL (3.5-5.0); BILIRUBIN,TOTAL 0.6 mg/dL (0.2-2.0); BUN/CREATININE RATIO 7.77; CALCIUM SERUM 7.9 mg/dL (8.4-10.2); CREATININE SERUM 0.9 mg/dL (0.6-1.4); POTASSIUM 3.3 mmol/L (3.5-5.1); PROTEIN TOTAL SERUM 5.1 g/dL (6.0-8.3)
[2017-01-04 07:26] LABS: HEMATOCRIT 30.9 % (35.0-45.0); MEAN CELL VOLUME 91.2 FL (83-96); MEAN CORPUSCULAR HEMOGLOBIN 29.4 PG (28-34); MEAN CORPUSCULAR HGB CONC 32.3 g/dL (30-36); MEAN PLATELET VOLUME 7.7 FL (6.5-11.5); RED BLOOD COUNT 3.39 X10e (3.90-5.30); RED CELL DISTRIBUTION WIDTH 14.7 % (11.0-15.5); WHITE BLOOD COUNT 9.9 X10e3 (4.0-10.5)
[2017-01-04 07:54] LABS: CALCIUM SERUM 8.1 mg/dL (8.4-10.2); CREATININE SERUM 0.8 mg/dL (0.6-1.4); GLOM FILT RATE Estimated 84.2 mL/min (>60); POTASSIUM 3.7 mmol/L (3.5-5.1)
[2017-01-04 10:40] LABS: ARTERIAL BLD GAS O2 SATURATION 91.3 % (90.0-100.0); ARTERIAL BLOOD GAS ALLEN TEST NORMAL; ARTERIAL BLOOD GAS ART SITE RIGHT RADIAL; ARTERIAL BLOOD GAS CARBOXY HB 0.8 %sat (0.0-9.0); ARTERIAL BLOOD GAS DELIVERY HFC; ARTERIAL BLOOD GAS HCO3 30.6 mmol/L; ARTERIAL BLOOD GAS MET HB 0.6 %sat (0.0-2.0); ARTERIAL BLOOD GAS PCO2 39.8 mmHg (35.0-45.0); ARTERIAL BLOOD GAS PO2 58.3 mmHg (80.0-100); ARTERIAL BLOOD GAS pH 7.494 (7.350-7.450); ARTERIAL DRAW? YES
[2017-01-05 06:30] LABS: HEMATOCRIT 31.4 % (35.0-45.0); HEMOGLOBIN 10.2 gm/dL (12.0-16.0); MEAN CELL VOLUME 90.6 FL (83-96); MEAN CORPUSCULAR HEMOGLOBIN 29.3 PG (28-34); MEAN CORPUSCULAR HGB CONC 32.4 g/dL (30-36); MEAN PLATELET VOLUME 7.8 FL (6.5-11.5); RED BLOOD COUNT 3.47 X10e (3.90-5.30); RED CELL DISTRIBUTION WIDTH 14.5 % (11.0-15.5); WHITE BLOOD COUNT 8.9 X10e3 (4.0-10.5)
[2017-01-05 07:06] LABS: ALBUMIN SERUM 2.3 g/dL (3.5-5.0); BILIRUBIN,TOTAL 0.6 mg/dL (0.2-2.0); BUN/CREATININE RATIO 12.85; CREATININE SERUM 0.7 mg/dL (0.6-1.4); GLOM FILT RATE Estimated 98.9 mL/min (>60); PROTEIN TOTAL SERUM 5.2 g/dL (6.0-8.3)
[2017-01-06 07:08] LABS: BUN/CREATININE RATIO 7.14; CREATININE SERUM 0.7 mg/dL (0.6-1.4); GLOM FILT RATE Estimated 98.9 mL/min (>60); POTASSIUM 3.4 mmol/L (3.5-5.1)
[2017-01-07 06:27] LABS: HEMATOCRIT 30.1 % (35.0-45.0); HEMOGLOBIN 9.7 gm/dL (12.0-16.0); MEAN CORPUSCULAR HEMOGLOBIN 29.6 PG (28-34); MEAN CORPUSCULAR HGB CONC 32.2 g/dL (30-36); MEAN PLATELET VOLUME 8.1 FL (6.5-11.5); RED BLOOD COUNT 3.27 X10e (3.90-5.30); RED CELL DISTRIBUTION WIDTH 14.1 % (11.0-15.5); WHITE BLOOD COUNT 8.8 X10e3 (4.0-10.5)
[2017-01-07 07:19] LABS: BLOOD UREA NITROGEN <5 mg/dL (9-23); BUN/CREATININE RATIO 8.33; CALCIUM SERUM 8.5 mg/dL (8.4-10.2); CARBON DIOXIDE 28 mmol/L (22-31); CHLORIDE 98 mmol/L (100-111); CREATININE SERUM 0.6 mg/dL (0.6-1.4); GLOM FILT RATE Estimated 104.1 mL/min (>60); GLUCOSE FASTING 98 mg/dL (70-110); POTASSIUM 3.5 mmol/L (3.5-5.1); SODIUM 134 mmol/L (135-145)
== END 2017-01-07 14:07 | DRG 870 ==
LOC: CED 07:34 → CEDOF 08:53 → CICCU3 12:48 → C5C 01-01 13:49
PROVIDERS: Emergency Medicine; Family Medicine; Internal Medicine; Internal Medicine Pulmonary Disease; Nurse Practitioner; Specialist
PROC: 5A1955Z Respiratory Ventilation, Greater than 96 Consecutive Hours (ICD-10-PCS; principal; 2016-12-24)
PROC: 0DH67UZ Insertion of Feeding Device into Stomach, Via Natural or Artificial Opening (ICD-10-PCS; 2016-12-24)
PROC: 0BH17EZ Insertion of Endotracheal Airway into Trachea, Via Natural or Artificial Opening (ICD-10-PCS; 2016-12-24)
PROC: 05HM33Z Insertion of Infusion Device into Right Internal Jugular Vein, Percutaneous Approach (ICD-10-PCS; 2016-12-24)
PROC: B543ZZA Ultrasonography of Right Jugular Veins, Guidance (ICD-10-PCS; 2016-12-24)
PROC: 30243J1 Transfusion of Nonautologous Serum Albumin into Central Vein, Percutaneous Approach (ICD-10-PCS; 2016-12-29)
PROC: 05HB33Z Insertion of Infusion Device into Right Basilic Vein, Percutaneous Approach (ICD-10-PCS; 2017-01-02)
PROC: B54MZZA Ultrasonography of Right Upper Extremity Veins, Guidance (ICD-10-PCS; 2017-01-02)
DX: A41.9 Sepsis, unspecified organism (principal); J96.02 Acute respiratory failure with hypercapnia; R65.21 Severe sepsis with septic shock; J69.0 Pneumonitis due to inhalation of food and vomit; J96.21 Acute and chronic respiratory failure with hypoxia; N17.9 Acute kidney failure, unspecified; L76.34 Postprocedural seroma of skin and subcutaneous tissue following other procedure; E44.0 Moderate protein-calorie malnutrition; E87.1 Hypo-osmolality and hyponatremia; F33.2 Major depressive disorder, recurrent severe without psychotic features; F05 Delirium due to known physiological condition; Y83.8 Other surgical procedures as the cause of abnormal reaction of the patient, or of later complication, without mention of misadventure at the time of the procedure; D50.9 Iron deficiency anemia, unspecified; Q90.9 Down syndrome, unspecified; R45.1 Restlessness and agitation; Z68.30 Body mass index [BMI] 30.0-30.9, adult; E66.9 Obesity, unspecified; E03.9 Hypothyroidism, unspecified; E87.6 Hypokalemia; E78.5 Hyperlipidemia, unspecified; I10 Essential (primary) hypertension; J98.4 Other disorders of lung; R74.0 Nonspecific elevation of levels of transaminase and lactic acid dehydrogenase [LDH]; G62.9 Polyneuropathy, unspecified; E83.42 Hypomagnesemia; E83.39 Other disorders of phosphorus metabolism; Z90.710 Acquired absence of both cervix and uterus; Z91.048 Other nonmedicinal substance allergy status; Z80.0 Family history of malignant neoplasm of digestive organs
CPT/HCPCS: 36600; 51701; 70450; 71010; 71260; 74000; 74022; 74177; 80048; 80053; 80076; 80200; 80202; 81003; 82140; 82308; 82550; 82553; 82803; 82947; 83605; 83735; 83880; 84100; 84132; 84134; 84443; 84484; 85025; 85027; 85610; 87040; 87070; 87205; 87449; 87899; 92526; 92610; 93005; 93306; 93970; 94002; 94003; 94640; 94644; 94660; 94668; 94760; 94761; 96374; 97110; 97116; 97162; 97167; 97530; 97535; 99291; C1781; C9113; G8978-GP; G8979-GP; G8987-GO; G8988-GO; G8996-GN; G8997-GN; G8998-GN; J0171; J0330; J0690; J1325; J1630; J1650; J1720; J1940; J1956; J2060; J2270; J2405; J2543; J2765; J3010; J3260; J3370; J3475; P9047; Q9967

== ENCOUNTER → 2017-01-21 | Outpatient (CLI) | payer MEDICARE, OTHER ==
[~2017-01-21] MED LIST changes: +ALLEGRA ALLERG180 MG PO; +AMITRIPTYLINE H25 MG PO; +FERROUS GLUCON324 MG PO; +LEVOTHYROXINE112 MCG PO; +LINZESS145 MCG PO; +MOTRIN IB200 M1 PO; +OXYGEN; +SINGULAIR PO; +VITAMIN D2 PO
--- NOTE | ~2017-01-21 | CT4 ---
[facility] A Service of [facility] RADIOLOGY TEXT RESULTS PATIENT: BRITTA SCHMITT LOCATION: [facility] : 61 UNIT #: [id number] AGE: [address]: Jovita Velasquez MD SEX: F ORDER DR: [id number] [address] [address] [id number] O MR#: [id number] Acc #: [id number] NAME: BRITTA SCHMITT : 1965 SEX: F STUDY DATE/TIME: 01/21/2017 UNIT: [facility] ROOM: STUDY DESCRIPTION: CT Abd and Pelv Wo Cont Attending Physician: Jovita Velasquez M.D. Referring Physician: Jovita Velasquez M.D. Ordering Physician: Jovita Velasquez M.D. Primary Care Physician: Jovita Velasquez M.D. MEDICAL IMAGING REPORT This report is preliminary unless electronic signature is present. EXAM CT abdomen and pelvis without contrast 01/21/2017 1152 hours HISTORY 51-year-old woman with blood in urine today, abdominal pain, history of Down syndrome. COMPARISON 01/02/2017 TECHNIQUE Helical noncontrasted images were obtained from the lung bases through the pubic symphysis. Sagittal and coronal reconstructions were performed. Total exam DLP 1176 mGy-cm. This CT exam was performed with one or more of the following radiation dose reduction techniques: automatic exposure control, adjustment of mA and/or kV according to patient size, and iterative reconstruction. FINDINGS Images through the lung bases are degraded by motion. There is some linear density at both bases, likely scarring. Previous bilateral effusions have resolved. Images through the abdomen demonstrate a normal appearance to the liver, spleen and pancreas. There are clips consistent with prior cholecystectomy. There is no bile duct dilatation. The adrenal glands are normal. The kidneys demonstrate no mass, stone or obstruction. There is no ureterectasis or ureteral calculus. The bladder appears normal. There is a midline subcutaneous fluid collection near the umbilicus actually decreased in size from 01/02/2017. It now measures 3.7 x 2.2 cm, previously 5.5 x 2.8 cm and likely represents a slowly resolving hematoma or seroma. No fascial defect is seen. [facility] A Service of [facility] RADIOLOGY TEXT RESULTS PATIENT: BRITTA SCHMITT LOCATION: [facility] : 61 UNIT #: [id number] AGE: [address]: Jovita Velasquez MD SEX: F ORDER DR: The stomach is contracted but normal in appearance. There is no distension or wall thickening in the small bowel. There is moderate stool throughout the colon without obstruction. There are few diverticula of the distal descending colon, but no wall thickening. CT pelvis demonstrates a normal appearance to the bladder. There is a poorly defined area within the fat of the epigastrium, measuring up to 5.1 x 2.4 cm, not well seen on the prior study. This is located solely within the omental fat and not associated with bowel or other organ and most likely represents an area of evolving fat necrosis. This is best seen on image 30. There are multilevel degenerative changes in the spine with underlying scoliosis, unchanged from prior exam. IMPRESSION 1. There are no renal or ureteral calculi. There is no dilatation of the renal collecting systems. The bladder appears normal. 2. Decreasing size of midline subcutaneous fluid collection near the umbilicus, now 3.7 x 2.2 cm, previously 5.5 x 2.8 cm. This is likely a slowly resolving postoperative collection. 3. Mild diverticulosis of the sigmoid colon without evidence of diverticulitis. 4. There is an ill-defined area of increased density within the omental fat of the epigastrium in the midline, new since the prior study. This measures up to 2.4 x 5.1 cm and has an appearance most consistent with evolving fat necrosis. This could be related to previous surgery. It is a possible source of pain. Correlate with the site of the patient's discomfort. 5. Stable degenerative changes in the spine. 6. Resolved bilateral pleural effusions and decrease in the basilar linear densities since 01/02/2017. STAT * RESULT Dictated by... Mandy Mak M.D. THIS IS AN ELECTRONICALLY VERIFIED REPORT Mandy Mak M.D. at 01/21/2017 2:28 PM CATIE/luzmaria TD: 01/21/2017 12:23 JOB #: [id number] MEDICAL IMAGING REPORT Page 1 of 1
== END | disposition home or self-care (01) ==
LOC: SCT 11:20
DX: R31.9 Hematuria, unspecified (principal); K57.30 Diverticulosis of large intestine without perforation or abscess without bleeding; R93.5 Abnormal findings on diagnostic imaging of other abdominal regions, including retroperitoneum; M47.899 Other spondylosis, site unspecified; J90 Pleural effusion, not elsewhere classified; J98.4 Other disorders of lung; Z98.890 Other specified postprocedural states
CPT/HCPCS: 74176